=== PATIENT | female | born 1960 | race Caucasian/White ===

== ENCOUNTER 2024-04-19 12:15 | Outpatient (CLI) | payer BC, SELFPAY ==
--- NOTE | ~2024-04-19 | XR_ITS ---
EXAMINATION: XR finger 1st LT min 2V DATE: 04/19/2024 12:31 INDICATION: Left thumb pain. TECHNIQUE: 4 views of left thumb were obtained. COMPARISON: None. FINDINGS: Alignment is normal. No fracture. There is severe osteoarthritis of triscaphe joint and fir st carpometacarpal joint. There is moderate osteoarthritis of first interphalangeal joint. IMPRESSION: 1. Polyarticular osteoarthritis. Reviewed, dictated and finalized at location A. LRY STORE MANAGER
== END 2024-04-19 12:16 | disposition home or self-care (01) ==
LOC: ANHIMG 12:17
PROVIDERS: PCP Family Medicine; Visit Provider Family Medicine
DX: M19.042 Primary osteoarthritis, left hand (principal)
CPT/HCPCS: 73140

== ENCOUNTER 2024-06-22 08:21 | Outpatient (CLI) | payer BC, SELFPAY ==
--- NOTE | 2024-06-22 08:22 | ECG_ITS ---
Test Date: 2024-06-22 09:10:49 Measurements Intervals [place] Rate: 68 P: 66 [place]: 162 QRS: -39 QRSD: 98 T: 42 QT: 413 QTc: 441 Interpretive Statements SINUS RHYTHM LEFT AXIS DEVIATION PATTERN CONSISTENT WITH PULMONARY DISEASE BASELINE WANDER- V4-V6 BORDERLINE ECG No previous ECG available for comparison Electronically Signed On 06-22-2024 10:00:45 C WPF DEVELOPER by Harshal Ace D.O.
--- OUTSIDE RECORDS SUMMARY | 2024-06-22 08:32 | XMS_ITS | Referral Summary ---
Author Organization [facility] Address [address] [place] [address] Care Team Providers Care Abrasives Sales Representative Name Role Phone Ana Massiel Primary Care Provider [phone] Encounters Date Type Department Care Team Description 05/03/2024 Orders Only [facility] [address] [place] [address] Unknown, Notinfile from Last 3 Months Allergies Active Allergy Reactions Criticality Noted Date Comments Cephalexin Rash High 09/19/2006 Codeine Anxiety,Other (See comments) High 09/19/2006 Gets really hyper Gets really hyper Gets really hyper Hyper Medications aspirin 81 mg enteric coated tablet Take 1 tablet (81 mg total) by mouth 11/19/2023 Active atenoloL (TENORMIN) 25 mg tablet Take 1 tablet (25 mg total) by mouth 01/04/2014 Active cetirizine (ZyrTEC) 10 mg tablet Take 1 tablet (10 mg total) by mouth daily Active Active Problems Problem Noted Date Diagnosed Date Hypertension 12/09/2023 Frequent UTI 04/08/2023 Bacterial vaginosis 04/08/2023 Hyperlipidemia 02/10/2023 Dyslipidemia 02/06/2023 Ascending aortic aneurysm 02/06/2023 Cervical radiculitis 06/24/2022 Degenerative disc disease, cervical 02/22/2022 Fissure, anal 08/17/2013 Adenomatous polyp of colon 01/04/2013 Overview (12/09/2023): Colonoscopy 2013 Back strain 07/17/2012 Essential hypertension, benign 10/14/2011 Overview (12/09/2023): (History of) Immunizations Name Administration Dates Next Due Hep A, Adult 10/08/2010,03/01/2010 Influenza, Quadrivalent, Spl it, Preservative Free, Intramuscular 03/15/2013,04/04/2011,03/01/2010,03/02 Tdap 08/06/2023,01/19/2010 Typhoid Live 03/01/2010 Social History Tobacco Use Types Packs/Day Years Used Date Smoking Tobacco: Never Tobacco Cessation:Counseling Given: Not Answered Personal Safety Answer Date Recorded Getting School Help Needed Not on file 11/06 Comments Unknown Sex and Gender Information Value Date Recorded Sex Assigned at Not on file Legal Sex Female 7:45 PM GENERAL PARTNER Gender Identity Not on file Sexual Orientation Not on file Last Filed Vital Signs Vital Sign Reading Time Taken Comments Blood Pressure - - Pulse - - Temperature - - Respiratory Rate - - Oxygen Saturation - - Inhaled Oxygen Concentration - - Weight 75.8 kg (167 lb 3.2 oz) 12/09/2023 10:22 AM CDT Height 170.7 cm (5' 7.2 ) 12/09/2023 10:22 AM CD T Body Mass Index 26.03 12/09/2023 10:22 AM CDT Plan of Treatment Not on file Procedures Procedure Name Priority Date/Time Associated Diagnosis Comments SURGICAL PATHOLOGY Routine 05/03/2024 12 :00 AM GENERAL PARTNER from Last 3 Months Results * Surgical pathology (05/03/2024 12:00 AM GENERAL PARTNER) Skin, shave biopsy 05/03/2024 05/05/2024 6:47 AM GENERAL PARTNER Narrative 05/06/2024 11:50 AM GENERAL PARTNER [facility] results best viewed via link to PDF [facility] [address] [place] [address] Nelda., ??Suite [facility], [place] [address] ? [email or web address] Note to Patients: ??This report may contain a detailed description of human tissue sent by a health care provider to the laboratory for pathologic evaluation. ??The content of this report is essential for diagnosis and may provide important critical findings. ??This information may be unfamiliar to patients to review without a medical professional present. ?? It is advised that the patient review this report in the presence of a health care provider who can answer questions and explain the details. FINAL REPORT Patient Information: PATIENT NAME: ??RACHELL GARCIA ? SEX: ??F ? : ??1960 (Age: 64) ? Specimen Information: COLLECTED: ??05/03/2024 ? RECEIVED: ??05/05/2024 ? REPORTED: ??05/06/2024 ? Submitting Physician Information: Molly Castorena, [facility] Skin [facility], [address] [place] [address] ??[id number], ? DERMATOPATHOLOGY REPORT RESULTS ?? DIAGNOSIS: SKIN, RIGHT INFERIOR MEDIAL MIDBACK, SHAVE BIOPSY: ? COMPOUND MELANOCYTIC NEVUS dh/lac By this signature, I attest that the above diagnosis is based upon my personal examination of the slides(and/or other material indicated in the diagnosis). Jessica Mccurdy M.D. ?? Report Electronically Reviewed and Signed Out By ??Jessica Mccurdy M.D. 05/06/2024 11:50:01 CLINICAL INFORMATION NEOPLASM OF UNCERTAIN BEHAVIOR VS. DYSPLASTIC NEVUS SPECIMEN DATA MICROSCOPIC DESCRIPTION: Enlarged monomorphous melanocytes are arranged as solitary units and nests at the dermo-epidermal junction and as uniform nests, cords and strands within the dermis. (D22.9) GROSS DESCRIPTION: Received in a formalin-containing bottle are two superficial fragments of variegated, hartman, pale hartman and semi-translucent skin measuring 0.6 by 0.5 by 0.1 cm and 0.5 by 0.4 by 0.1 cm. ??The surgical margins are inked blue. The larger piece is sectioned into 2 pieces and the smaller piece is sectioned into 2 pieces. ??The specimen is submitted entirely in a single cassette. Due to shrinkage, measurements may be different than those at time of procedure. exr/anc ICD-9 A; ZSD.407 ? Clerical Data A; 04790 The characteristics of special, immunohistochemical, and immunofluorescence stains and in-situ hybridization tests performed by the [facility] were deemed acceptable in ongoing head of quality measures and in compliance with regulations drawn from the Clinical Laboratory Improvement Act ko4571 (CLIA '88). Control reactions for all stains performed were deemed adequate and appropriate by a pathologist prior to evaluation of patient tissue. Some diagnoses were rendered with the assistance of laboratory-developed tests utilizing analyte-specific reagents; the performance characteristic of these tests were determined by [facility] and are not cleared or approved by the US Food an Drug administration. Laboratory developed test may only be performed in a facility that is certified by the [facility] as a high-complexity laboratory under CLIA '88. These tests are used for clinical purposes and are not investigational. us Notinfile Unknown LAB PATHOLOGY ORDERABLES Final Result from Last 3 Months Insurance [facility] Care Teams Abrasives Sales Representative Relationship Specialty Start Date End Date Massiel Perez [phone] [address] [phone] PCP - General Family Medicine 11/07/23
--- OUTSIDE RECORDS SUMMARY | 2024-06-22 08:32 | XMS_ITS | Clinical Summary ---
Author Organization [facility] Address [address] [place] [address] Care Team Providers Care Chief Strategy Officer Name Role Phone Ana Massiel Primary Care Provider [phone] Allergies Active Allergy Reactions Criticality Noted Date [...] hypertension, benign 10/14/2011 Overview (12/09/2023): (History of) Encounters Date Type Department Care Team Description 05/03/2024 Orders Only [facility] [address] [place] [address] Unknown, Notinfile from Last 3 Months Immunizations Name Administration Dates Next Due Hep A, Adult 10/08/2010,03/01/2010 Influenza, Quadrivalent, Spl it, Preservative Free, Intramuscular 03/15/2013,04/04/2011,03/01/2010,03/02 Tdap 08/06/2023,01/19/2010 Typhoid Live 03/01/2010 Surgical History Surgery Date Site/Laterality Comments JOINT REPLACEMENT HIP SURGERY Medical History Medical History Date Comments Arthritis Social History Tobacco Use Types Packs/Day Years Used Date Smoking Tobacco: Never Tobacco Cessation:Counseling Given: Not Answered Personal Safety Answer Date Recorded Getting School Help Needed Not on file 11/06 Comments Unknown Sex and Gender Information Value Date Recorded Sex Assigned at Not on file Legal Sex Female 7:45 PM FIELD NATURALIST Gender Identity Not on file Sexual Orientation Not on file Obstetrics History Last Filed Vital Signs Vital Sign Reading [...] 12/09/2023 10:22 AM CDT Plan of Treatment Health Maintenance Due Date Last Done Comments Cervical Cancer Screening 1960 Colon Cancer Screening-Colonoscopy 1960 Depression Screening 1960 Hepatitis C Screening 1960 Hepatitis B Screening 1980 Regular Well Visit/Exam 18-64 1980 Zoster Vaccine (1 of 2) 2012 Breast Cancer Screening-Mammogram 11/08/2023 11/07/2022, 11/07/2022, 11/15/2013, Additional history exists Covid-19 Vaccine ( season) 2024 07/21/2021, 06/23/2021 Influenza Vaccine (#1) 2024 3, 04/04/2011, 03/01/2010, Additional history exists DTaP/Tdap/Td Vaccine (3 - Td or Tdap) 08/05/2033 08/06/2023, 01/19/2010 Pneumococcal vaccine <65 Aged Out No longer eligible based on patient's age to complete this topic Procedures Procedure Name Priority Date/Time Associated Diagnosis Comments SURGICAL PATHOLOGY Routine 05/03/2024 12 :00 AM FIELD NATURALIST from Last 3 Months Results * Surgical pathology (05/03/2024 12:00 AM FIELD NATURALIST) Skin, shave biopsy 05/03/2024 05/05/2024 6:47 AM FIELD NATURALIST Narrative 05/06/2024 11:50 AM FIELD NATURALIST [facility] results best viewed via link to PDF [facility] [address] [place], [place] [address]new., ??Suite [facility], [place] [address] ? [email or web address] Note to Patients: ??This report may [...] ??05/06/2024 ? Submitting Physician Information: Molly Castorena, SCALES INSPECTOR- [facility], [address] [place] [address] ??[id number], ? DERMATOPATHOLOGY REPORT RESULTS ?? DIAGNOSIS: SKIN, [...] ICD-9 A; ZSD.407 ? Clerical Data A; 74595 The characteristics of special, immunohistochemical, and immunofluorescence stains and in-situ hybridization tests performed by the [facility] were deemed acceptable in ongoing assistant manager quality management measures and in compliance with regulations drawn from the Clinical Laboratory Improvement Act nc4831 (CLIA '88). Control reactions for all stains performed were deemed adequate and appropriate by a pathologist prior to evaluation of patient tissue. Some diagnoses were rendered with the assistance of laboratory-developed tests utilizing analyte-specific reagents; the performance characteristic of these tests were determined by [facility] and are not cleared or approved by the US Food an Drug administration. Laboratory developed test may only be performed in a facility that is certified by the [facility] as a high-complexity laboratory under CLIA '88. These tests are used for clinical purposes and are not investigational. us Notinfile Unknown LAB PATHOLOGY ORDERABLES Final Result from Last 3 Months Insurance [facility] [place] Care Teams Chief Strategy Officer Relationship Specialty Start Date End Date Massiel Perez [phone] [address] [phone] PCP - General Family Medicine 11/07/23
--- OUTSIDE RECORDS SUMMARY | 2024-06-22 08:32 | XMS_ITS | Referral Summary ---
Author Organization [facility] Address [address] [place] [address] Care Team Providers Care Optical Systems Engineer Name Role Phone Pcp, None Primary Care Provider Unavailabl e Source Comments [facility],non-owned Affiliates and Associated Physician Practices is amultiple site organization consisting of ambulatory clinics and hospital sitesin [place], [place], [place] and [place]. This disclosure is being madepursuant to the Care Everywhere program and may not contain all information available regarding this patient. Last updated 18.[facility] Allergies Active Allergy Reactions Criticality Noted Date Comments Codeine Other High 09/19/2006 Gets really hyper Gets really hyper Gets really hyper Gets really hyper Gets really hyper Gets really hyper Hyper Medications * Be aware that medications may not be up to date on this document. Alwaysverify current medications with the patient. Medication Sig Dispensed Refills Start Date End Date Status DICLOFENAC SOD & TROLAMINE ANOOP CO 05/19/2022 Active hydrocortisone 2.5 % cream - camphor 0.5% - menthol 1% CREA 05/19/2022 Active diclofenac sodium EC (Voltaren) 50 MG tablet Take 1 (one) tablet by mouth 2 times daily 08/06/2023 Active estradiol (Estradiol) 0.0375 MG/24HR 05/19/2022 Active gabapentin (Neurontin) 300 MG capsule Take 2 (two) capsules by mouth at bedtime Active hydrocortisone, rectal, (Anusol-HC) 2.5 % cream PLACE 1 APPLICATION RECTALLY TWICE A DAY 11/14/2023 Active [place]-3 Fatty Acids (fish oil) 1000 MG capsule Take 1 (one) capsule by mouth once daily 12/18/2023 Active Progesterone 100 MG capsule TAKE 1 CAPSULE BY MOUTH EVERY DAY AT BEDTIME 05/19/2018 Active Multiple Vitamins-Minerals (BIOTECT PLUS PO) Vh balance 05/19/2022 Active estriol-estradiol 0.1-0.4 MG/GM cmpd cream Apply to affected area once daily Active nitrofurantoin macrocrystal (Macrodantin) 50 MG capsuleIndications: History of recurrent UTIs Take 1 (one) capsule by mouth once daily as needed 90 capsule 3 01/26/2024 Active fluconazole (Diflucan) 150 MG tabletIndications:H istory of vaginitis Take 1 (one) tablet by mouth every 7 days 12 tablet 3 01/26/2024 Active Active Problems Problem Noted Date Diagnosed Date Osteoarthritis of right hip 09/12/2023 Primary osteoarthritis of right knee 07/01/2023 Hyperlipidemia 02/10/2023 Ascending aortic aneurysm 02/06/2023 STEFANY (obstructive sleep apnea) 03/13/2022 Degenerative disc disease, cervical 02/22/2022 Resolved Problems Problem Noted Date Diagnosed Date Resolved Date Essential hypertension, benign 10/14/2011 01/26/2024 Overview (01/26/2024): (History of) Social History Tobacco Use Types Packs/Day Years Used Date Smoking Tobacco: Never Smokeless Tobacco: Never Tobacco Cessation:Counseling Given: Not Answered Alcohol Use Standard Drinks/Week Comments Yes 2 (1 standard drink = 0.6 oz pur e alcohol) week PHQ-2 Answer Date Recorded Patient Health Questionnaire-2 Score 0 01/19/2024 Sex and Gender Information Value Date Recorded Sex Assigned at Female 02/24/2024 11:01 AM CDT Gender Identity Female 02/24/2024 11:01 AM CDT Sexual Orientation Straight 02/24/2024 11 :01 AM CDT Last Filed Vital Signs Vital Sign Reading Time Taken Comments Blood Pressure 132/76 01/26/2024 10:51 AM CDT Pulse - - Temperature - - Respiratory Rate - - Oxygen Saturation - - Inhaled Oxygen Concentration - - Weight 75.5 kg (166 lb 6.4 oz) 01/26/2024 10:51 AM CDT Height 172.7 cm (5' 8 ) 01/26/2024 10:51 AM CDT Body Mass Index 25.3 01/26/2024 10:51 AM CDT Plan of Treatment Upcoming Encounters Date Type Department Care Team (Late st Contact Info) Description 07/27/2024 10:30 AM CDT Office Visit [facility] - ADVERTISING ASSISTANT [address], [facility] [address] [place] [address] Coreen Vides MD [address] [facility] [address] [place] [address] Care Teams Optical Systems Engineer Relationship Specialty Start Date End Date Pcp, None [phone] [place] [address] PCP - General 01/26/24
--- OUTSIDE RECORDS SUMMARY | 2024-06-22 08:32 | XMS_ITS | Clinical Summary ---
Author Organization [facility] Address [address] [place] [address] Care Team Providers Care Correspondence School Teacher Name Role Phone Pcp, None Primary Care Provider Unavailabl e Source Comments [facility],non-owned Affiliates and Associated Physician Practices is amultiple site organization consisting of ambulatory clinics and hospital sitesin [place], [place], [place] and [place]. This disclosure is being madepursuant to the Care Everywhere program and may not contain all information available regarding this patient. Last updated 18.[facility] Allergies Active Allergy Reactions Criticality Noted Date [...] APPLICATION RECTALLY TWICE A DAY 11/14/2023 Active [place]-3 Fatty Acids (fish oil) 1000 MG capsule [...] 07/01/2023 Hyperlipidemia 02/10/2023 Ascending aortic aneurysm 02/06/2023 TSEFANY (obstructive sleep apnea) 03/13/2022 Degenerative disc disease, cervical 02/22/2022 Resolved Problems Problem Noted Date Diagnosed Date Resolved Date Essential hypertension, benign 10/14/2011 01/26/2024 Overview (01/26/2024): (History of) Family History Medical History Relation Name Comments Hypertension Mother Relation Name Status Comments Mother Social History Tobacco Use Types Packs/Day Years [...] Description 07/27/2024 10:30 AM CDT Office Visit [facility] - STAFF ANESTHESIOLOGIST [address], [address] [place] [address] Coreen Vides MD [address] [place] [address] Health Maintenance Due Date Last Done Comments COLOGUARD (AGES 45-75) - COLON CA SCREENING 1962 COLON MONITORING 1962 COLONOSCOPY - COLON CA SCREENING 1962 CT COLONOGRAPHY - COLON CA SCREENING 1962 Colorectal Cancer Screening 1962 FIT - COLON CA SCREENING 1962 FLEX SIG - COLON CA SCREENING 1962 LIPID TESTING 1962 PAP SMEAR 1962 HIV SCREENING 1977 HEPATITIS C SCREENING 04/13/1980 DTAP/TDAP/TD VACCINES (1 - Tdap) 1981 PNEUMOCOCCAL VACCINE 50+ (1 of 1 - PCV) 2012 ZOSTER VACCINE (1 of 2) 2012 COVID-19 VACCINE (3 - season) 2024 07/21/2021, 06/23/2021 INFLUENZA VACCINE (#1) 2024 3, 04/04/2011, 03/01/2010, Additional history exists SCREENING FOR DIABETES 01/26/2024 DEPRESSION SCREENING 05/19/2024 01/26/2024 MAMMOGRAM 11/07/2024 11/07/2022, 10/18, 02/21/2020 Respiratory Syncytial Virus (RSV) Vaccine Pt: or over 60 yrs (1 - 1-dose 75+ series) 2037 HEPATITIS B VACCINE Aged Out No longe r eligible based on patient's age to complete this topic HIB VACCINE Aged Out No longer eligi ble based on patient's age to complete this topic HPV VACCINE Aged Out No longer eligi ble based on patient's age to complete this topic MENINGOCOCCAL (Group B) VACCINE Aged Out No longer eligible based on patient's age to complete this topic MENINGOCOCCAL VACCINE Aged Out No lisbeth obdulia eligible based on patient's age to complete this topic PNEUMOCOCCAL VACCINE Aged Out No long er eligible based on patient's age to complete this topic Care Teams Correspondence School Teacher Relationship Specialty Start Date End Date Pcp, None [phone] [place] [address] PCP - General 01/26/24
--- OUTSIDE RECORDS SUMMARY | 2024-06-22 08:32 | XMS_ITS | Patient Health Summary ---
Author Organization [facility] Address [address] [place] [address] Care Team Providers Care Hob Machine Operator Name Role Phone Pcp, None Primary Care Provider Unavailabl e Note from [facility],non-owned Affiliates and Associated Physician Practices is amultiple site organization consisting of ambulatory clinics and hospital sitesin [place], [place], [place] and [place]. This disclosure is being madepursuant to the Care Everywhere program and may not contain all information available regarding this patient. Last updated 18.[facility] Allergies * Codeine(Other) -High Criticality * Cephalexin(Rash) -High Criticality,Inactive Medications * Be aware that medications may not be up to date on this document. Alwaysverify current medications with the patient. * DICLOFENAC SOD & TROLAMINE ANOOP CO(Started 05/19/2022) * hydrocortisone 2.5 % cream - camphor 0.5% - menthol 1% CREA(Started 05/19/2022) * diclofenac sodium EC (Voltaren) 50 MG tablet(Started 08/06/2023) Take 1 (one) tablet by mouth 2 times daily * estradiol (Estradiol) 0.0375 MG/24HR(Started 05/19/2022) * gabapentin (Neurontin) 300 MG capsule Take 2 (two) capsules by mouth at bedtime * hydrocortisone, rectal, (Anusol-HC) 2.5 % cream(Started 11/14/2023) PLACE 1 APPLICATION RECTALLY TWICE A DAY * [place]-3 Fatty Acids (fish oil) 1000 MG capsule(Started 12/18/2023) Take 1 (one) capsule by mouth once daily * Progesterone 100 MG capsule(Started 05/19/2018) TAKE 1 CAPSULE BY MOUTH EVERY DAY AT BEDTIME * Multiple Vitamins-Minerals (BIOTECT PLUS PO)(Started 05/19/2022) Vh balance * estriol-estradiol 0.1-0.4 MG/GM cmpd cream Apply to affected area once daily * nitrofurantoin macrocrystal (Macrodantin) 50 MG capsule(Started 01/26/2024) Take 1 (one) capsule by mouth once daily as needed 3 refills by 01/25/2025 * fluconazole (Diflucan) 150 MG tablet(Started 01/26/2024) Take 1 (one) tablet by mouth every 7 days 3 refills by 01/25/2025 Active Problems Problem Noted Date Diagnosed Date Osteoarthritis of right hip 09/12/2023 Primary osteoarthritis of right knee 07/01/2023 Hyperlipidemia 02/10/2023 Ascending aortic aneurysm 02/06/2023 STEFANY (obstructive sleep apnea) 03/13/2022 Degenerative disc disease, cervical 02/22/2022 Resolved Problems Problem Noted Date Diagnosed Date Resolved Date Essential hypertension, benign 10/14/2011 01/26/2024 Social History Tobacco Use Types Packs/Day Years [...] Mass Index 25.3 01/26/2024 10:51 AM CDT Procedures * WET PREP - POINT OF CARE (AMB) [facility](Performed 01/26/2024) Performed for History of vaginitis * FUNGUS DEEPIKA - POINT OF CARE (AMB) [facility](Performed 01/26/2024) Performed for History of vaginitis * PH FLUID - POCT (AMB) [facility](Performed 01/26/2024) Performed for History of vaginitis Results * PH FLUID - POCT (AMB) [facility] (01/26/2024 12:11 PM CDT) pH Vaginal 4.0 [facility] [address] Fluid ENTIRE VAGINA / Unknown 01/26/2024 12:11 PM CDT Coreen Vides MD LAB - POINT OF CAR E ORDERABLES [facility] [address] [place] [address], [facility] [phone] * WET PREP - POINT OF CARE (AMB) [facility] (01/26/2024 12:11 PM CDT) pH Wet Prep 4.0 [facility] [address] Yeast Wet Prep neg [facility] [address] Trichomonas Wet Prep None [facility] [address] Bacteria Wet Prep neg [facility] [address] Whiff Test neg [facility] [address] BODY FLUID SPECIMEN / Unknown 01/26/2024 12:11 PM CDT Coreen Vides MD LAB - POINT OF CAR E ORDERABLES [facility] [address] [place] [address], [facility] [phone] * FUNGUS DEEPIKA - POINT OF CARE (AMB) [facility] (01/26/2024 12:11 PM CDT) DEEPIKA Prep No [facility] [address] Fluid BODY FLUID SPECIMEN / Unknown 01/26/2024 12:11 PM CDT Coreen Vides MD LAB - POINT OF CAR E ORDERABLES [facility] [address] [place] [address], [facility] [phone] Care Teams Hob Machine Operator Relationship Specialty Start Date End Date Pcp, None [address] [place] [address] PCP - General 01/26/24
== END 2024-06-22 08:22 | disposition home or self-care (01) ==
LOC: ANHCARD 08:22
PROVIDERS: PCP Family Medicine; Visit Provider Orthopaedic Surgery
DX: I47.10 Supraventricular tachycardia, unspecified (principal); I10 Essential (primary) hypertension
CPT/HCPCS: 93005

== ENCOUNTER 2024-07-14 09:44 | Emergency (ER) | payer BC, SELFPAY ==
[2024-07-14 09:52] VITALS: BP 130/95; PULSE 81; RESP 16; TEMP 36; O2SAT 100
--- NOTE | 2024-07-14 10:01 | ED_ITS ---
HPI - URI/Sore Throat General Chief Complaint: Upper Respiratory Infection Stated Complaint: sinus inefection Time Seen by Provider: 07/14/24 10:01 Source: patient Mode of arrival: ambulatory Limitations: no limitations History of Present Illness HPI Narrative: 64-year-old female presents with complaint of sinus congestion, sinus pressure, postnasal drainage for 2-3 weeks. Over the past 2-3 days sinus pressure worse. Taking Zyrtec and Elyssa daily. States she has been told to take to antihistamines in the past when sinusitis bothering her. History of sinus surgery. Afebrile. Patient concerned she has bacterial sinus infection. All systems reviewed and negative except as noted above. Related Data Home Medications ?Medication ?Instructions ?Recorded ?Confirmed ?Last Taken ?Type fluconazole 150 mg tablet 150 mg PO DAILY 02/06/24 05/05/24 Unknown History gabapentin 600 mg tablet 600 mg PO QHS 02/06/24 05/05/24 Unknown History hydrocortisone 2.5 % topical cream 1 applic topical BID PRN 02/06/24 05/05/24 Unknown History nitrofurantoin macrocrystal 50 mg 50 mg PO DAILY 02/06/24 05/05/24 Unknown History capsule progesterone micronized 100 mg 100 mg PO QPM 02/06/24 05/05/24 Unknown History capsule estradiol 0.01% (0.1 mg/gram) vaginal 04/08/24 05/05/24 Unknown History vaginal cream Allergies Allergy/AdvReac Type Severity Reaction Status Date / Time No Known Allergies Allergy Verified 07/14/24 09:45 Review of Systems Review of Systems: CONSTITUTIONAL: Denies fever, chills, or sweats. Reports fatigue. EYES: Denies visual changes, redness, or discharge. ENT: Reports rhinorrhea, congestion, postnasal drainage, sinus pressure. Denies sore throat, or otalgia. CARDIOVASCULAR: Denies chest pain, palpitations, or edema. RESPIRATORY: reports cough . Denies dyspnea. GASTROINTESTINAL: Denies abdominal pain, nausea, vomiting, or diarrhea. GENITOURINARY: Denies dysuria or hematuria. SKIN: Denies rash or itching. MUSCULOSKELETAL: Denies back pain, joint pain, or myalgia. NEUROLOGIC: Denies headache, numbness, or weakness. PSYCHIATRIC: Denies anxiety or depression. All other systems reviewed are negative, except as documented in HPI. [facility] Past Medical History Medical History Ovarian cyst Cyst, sinus nasal Thoracic aortic aneurysm Family history of gynecological problem with orthopedic problem Sleep apnea Arthritis Allergies Surgical History Surgical History H/O sinus surgery History of spinal fusion [place] teeth removed Family History Family History Mother Hypertension Cerebrovascular accident Social History Social History Smoking status: Never smoker Comments At time of signature, agree with nursing past medical, surgical, social and family history. There is no relevant family history pertinent to the presenting complaint. Exam Narrative: GENERAL: This is a well-nourished, well-developed patient, in no apparent distress. HEAD: normocephalic, atraumatic. EYES: PERRL. Sclera clear/white. Vision is grossly intact. EARS: External ears normal, auditory canals clear and without drainage, TMs normal without perforation. Hearing grossly intact. NOSE: External nose normal with purulent nasal drainage, maxillary and ethmoid sinus tenderness on palpation THROAT: Mucous membranes moist, erythematous with postnasal drainage NECK: Neck supple, non-tender without lymphadenopathy, masses or thyromegaly. CARDIOVASCULAR: Regular rate and rhythm without murmurs, gallops, or rubs. RESPIRATORY: Clear to auscultation. Breath sounds equal bilaterally. No wheezes, rales, or rhonchi. SKIN: warm, Dry, intact with no suspicious lesions or rash, good texture and turgor. NEURO: awake, alert, and oriented to person, place and time. There were no obvious focal neurologic abnormalities. EXTREMITIES: No joint tenderness, effusion, or edema noted. Course Course Level of Care: Express Care Visit Vital Signs Vital signs: Vital Signs Temperature 36.0 C L 07/14/24 09:52 Pulse Rate 81 07/14/24 09:52 Respiratory Rate 16 07/14/24 09:52 Blood Pressure 130/95 H 07/14/24 09:52 Pulse Oximetry 100 07/14/24 09:52 Oxygen Delivery Room Air 07/14/24 09:52 Temperature 36.0 C L 07/14/24 09:52 Pulse Rate 81 07/14/24 09:52 Respiratory Rate 16 07/14/24 09:52 Blood Pressure 130/95 H 07/14/24 09:52 Pulse Oximetry 100 07/14/24 09:52 Oxygen Delivery Room Air 07/14/24 09:52 reviewed MDM - URI/Sore Throat MDM Narrative Medical decision making narrative: will treat patient for bacterial sinusitis due to duration of symptoms and exam findings. Patient is well-appearing, nontoxic. Please be advised this is a medical document. It is intended for lpgu-pu-bday communication. It is written in medical language and may contain unfamiliar abbreviations or verbiage. Medical documents are intended to carry relevant information, facts as evident, and the clinical opinion of the practitioner at the time of the encounter. This report may have been done utilizing a voice recognition system. Attempts have been made to correct errors. However, there may be uncorrected grammatical, spelling, and recognition errors present. The file time of this note does not necessarily represent the time of service. Differential Diagnosis Differential diagnosis: Likely upper respiratory infection, sinusitis and viral infection Discharge Plan Discharge Clinical Impression: Acute bacterial sinusitis Patient Disposition: Home, Self-Care Condition: Stable Instructions: Antibiotic Form, Sinusitis (ED) Additional Instructions: take antibiotic as prescribed until gone. Continue taking an zcrg-zpw-qmxjosx antihistamine such as Claritin, Zyrtec or Elyssa. Take as directed on packaging. Purchase an tqmg-ekg-ixgpode decongestant such as pseudoephedrine and take as directed on packaging. Drink at least 64 oz of water a day. Place a cool-mist humidifier in bedroom where you sleep. Follow-up with your doctor if symptoms are not improving. Patient Language: Khmer Prescriptions: New amoxicillin-pot clavulanate 875-125 mg tablet 1 tablet PO Q12H 7 Days Qty: 14 0RF No Action estradiol 0.01 % (0.1 mg/gram) cream vaginal progesterone micronized 100 mg capsule 100 mg PO QPM nitrofurantoin macrocrystal 50 mg capsule 50 mg PO DAILY Rx Instructions: must administer with a meal/food fluconazole 150 mg tablet 150 mg PO DAILY hydrocortisone 2.5 % cream 1 applic topical BID PRN gabapentin 600 mg tablet 600 mg PO QHS diclofenac sodium 50 mg tablet,delayed release (DR/EC) 50 mg PO BID Qty: 180 1RF lorazepam 1 mg tablet 1 mg PO QHS PRN (Reason: sleep) Qty: 30 0RF Follow-up/Referrals: Joey Weston MD [Primary Care Provider] - Time of Disposition: 10:11
--- OUTSIDE RECORDS SUMMARY | 2024-07-14 10:44 | XMS_ITS ---
Author Organization 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 Recommended that she apply ICE or topical analgeiscs to the site. Advised her to contact the clinic if the symptoms become worse or do not improve. Plan to insert pellets proximal to the hip in future procedures. Plan Of Treatment Treatment Notes Assessment Notes Other Discussed with the p atient that the pain should improve over the next 1-2 weeks. Recommended that she apply ICE or topical analgeiscs to the site. Advised her to contact the clinic if the symptoms become worse or do not improve. Plan to insert pellets proximal to the hip in future procedures. Progress Notes * Barb GARCIAOB:1960 (64 yo F)Acc No.[id number]:03/31/2024 GenericFQ Patient: Rachell FLEMING Provider: Celena Antoine MD :1960 A ge:63 Y S ex:Female Date:03/31/2024 Address:[address] [place], [place] [id number] Subjective: * Chief Complaints: * 1 . Pellet Pain/Discomfort. * HPI: * [facility]: She presents to clinic today with complaints of pain and tenderness at the left gluteal pellet insertion site. She reports persistent pain i n the left buttocks for the last two weeks that is worse when she sits. She is currently in PT twice a week for a left hip surgery in November. 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 30 MG Tablet 1/2 tablet on an empty stomach x 1 week, then 1 tablet daily there after as tolerated, on a empty stomach Orally Once a day Objective: * Vitals: Assessment: Plan: * Treatment: * Billing Information: * Visit Code: * Procedure Codes: * Electronic signature of Nayana Antoine MD, FAAAAI on 07/14/2024 at 10:44 AM ER NURSE Sign off status: Pending * Provider: Celena Antoine MD Date: 1 05/31/2023 Generated for Kate huerta/Italo/Vickysmitting on: 0 07/14/2024 10:44 AM ER NURSE History and Physical Notes * HPI (History of Present Illness) Category Sub-Category Detail Notes Category Not es *Wellness & Aesthetics She p resents to clinic today with complaints of pain and tenderness at the left gluteal pellet insertion site. She reports persistent pain in the left buttocks for the last two weeks that is worse when she sits. She is currently in PT twice a week for a left hip surgery in November.
--- OUTSIDE RECORDS SUMMARY | 2024-07-14 10:44 | XMS_ITS | Patient Health Record ---
Author Organization [facility] Address [address] [place] [phone] Care Team Providers Care Foundry Worker Apprentice Name Role Phone Jorge Antoine Unavailable [phone] Results Component Value Reference Range Notes HRT Female Pre Pellet Reviewed date:06/28/2024 12:19:10 PM Interpretation:Abnormal Performing Lab:[facility], [address] [place] [id number], Phone - [phone], Director - Elva Notes/Report: Glucose 88 70-99 mg/dL BUN 14 8-27 mg/dL Creatinine 0.89 0.57-1.00 mg/dL eGFR 74 >59 mL/min/1.73 BUN/Creatinine Ratio 16 12-28 Sodium 140 134-144 mmol/L Potassium 4.1 3.5-5.2 mmol/L Chloride 102 96-106 mmol/L Carbon Dioxide, Total 24 20-29 mmol/L Calcium 8.8 8.7-10.3 mg/dL Protein, Total 6.6 6.0-8.5 g/dL Albumin 4.1 3.9-4.9 g/dL Globulin, Total 2.5 1.5-4.5 g/dL Bilirubin, Total 0.4 0.0-1.2 mg/dL Alkaline Phosphatase 66 44-121 IU/L AST (SGOT) 20 0-40 IU/L ALT (SGPT) 16 0-32 IU/L Vitamin B12 803 363-9276 pg/mL Vitamin D, 25-Hydroxy 60.9 30.0-100.0 ng/mL Vitamin D deficiency has been defined by the [place] of [employer] and an Endocrine Society practice guideline as a level of serum 25-OH vitamin D less than 20 ng/mL (1,2). The Endocrine Society went on to further define vitamin D insufficiency as a level between 21 and 29 ng/mL (2). 1. IOM ([place] of [employer]). 2010. Dietary reference intakes for calcium and D. [place]: The National Academies Press. 2. June MF, Blaze HANNAH, Zaida SEGOVIA, et al. Evaluation, treatment, and prevention of vitamin D deficiency: an Endocrine Society clinical practice guideline. JCEM. 2010; 96(7):1911-30. TSH 2.080 0.450-4.500 uIU/mL Triiodothyronine (T3), Free 2.9 2.0-4.4 pg/mL T4,Free(Direct) 1.08 0.82-1.77 ng/dL Thyroid Peroxidase (TPO) Ab 15 0-34 IU/mL Testosterone 27 3-67 ng/dL FSH 68.3 25.8-134.8 mIU/mL Adult Female Range Follicular phase 3.5 - 12.5 Ovulation phase 4.7 - 21.5 Luteal phase 1.7 - 7.7 Postmenopausal 25.8 - 134.8 Estradiol 98.1 0.0-54.7 pg/mL Adult Female Range Follicular phase 12.5 - 166.0 Ovulation phase 85.8 - 498.0 Luteal phase 43.8 - 211.0 Postmenopausal <6.0 - 54.7 1st trimester 215.0 - >4300.0 Genia ECLIA methodology WBC 4.7 3.4-10.8 x10E3/uL RBC 4.04 3.77-5.28 x10E6/uL Hemoglobin 12.7 11.1-15.9 g/dL Hematocrit 40.4 34.0-46.6 % MCV 100 79-97 fL MCH 31.4 26.6-33.0 pg MCHC 31.4 31.5-35.7 g/dL RDW 13.0 11.7-15.4 % Platelets 268 150-450 x10E3/uL Neutrophils 51 Not Estab. % Lymphs 33 Not Estab. % Monocytes 11 Not Estab. % Eos 4 Not Estab. % Basos 1 Not Estab. % Neutrophils (Absolute) 2.4 1.4-7.0 x10E3/uL Lymphs (Absolute) 1.5 0.7-3.1 x10E3/uL Monocytes(Absolute) 0.5 0.1-0.9 x10E3/uL Eos (Absolute) 0.2 0.0-0.4 x10E3/uL Baso (Absolute) 0.1 0.0-0.2 x10E3/uL Immature Granulocytes 0 Not Estab. % Immature Grans (Abs) 0.0 0.0-0.1 x10E3/uL -Uric Acid, Serum Reviewed date:02/27/2024 06:53:09 PM Interpretation:Normal Performing Lab:[address] [id number], Phone - [phone], Director - [facility] Notes/Report: Uric Acid 3.8 3.0-7.2 mg/dL Therapeutic ta rget for gout patients: <6.0 -Hemoglobin A1c Reviewed date:02/27/2024 06:55:32 PM Interpretation:Normal Performing Lab:[address] [id number], Phone - [phone], Director - [facility] Notes/Report: Hemoglobin A1c 5.6 4.8-5.6 % . Prediabetes: 5.7 - 6.4 Diabetes: >6.4 Glycemic control for adults with diabetes: <7.0 -Insulin, Fasting Reviewed date:02/27/2024 06:55:07 PM Interpretation:Normal Performing Lab:[address] [id number], Phone - [phone], Director - [facility] Notes/Report: Insulin 3.6 2.6-24.9 uIU/mL -Ferritin, Serum Reviewed date:02/27/2024 06:52:03 PM Interpretation:Normal Performing Lab:[address] [id number], Phone - [phone], Director - [facility] Notes/Report: Ferritin 47 15-150 ng/mL -C-Reactive Protein, Quant Reviewed date:02/27/2024 06:52:13 PM Interpretation:Normal Performing Lab:[address] [id number], Phone - [phone], Director - [facility] Notes/Report: C-Reactive Protein, Quant <1 0-10 mg/L -Lipid Panel With LDL/HDL Ra sara Reviewed date:06/28/2024 12:19:10 PM Interpretation:Abnormal Performing Lab:[facility], [address] [place], [place] [id number], Phone - [phone], Director - Elva Notes/Report: Cholesterol, Total 324 100-199 mg/dL Triglycerides 152 0-149 mg/dL HDL Cholesterol 61 >39 mg/dL VLDL Cholesterol Rishi 28 5-40 mg/dL LDL Chol Calc ([facility]) 235 0-99 mg/dL LDL Calc Comment: Consider evaluating for Familial Hypercholesterolemia(FH), if clinically indicated. LDL/HDL Ratio 3.9 0.0-3.2 ratio LDL/HDL Ratio Men Women 1/2 Avg.Risk 1.0 1.5 Avg.Risk 3.6 3.2 2X Avg.Risk 6.2 5.0 3X Avg.Risk 8.0 6.1 -IGF-1 Reviewed date:03/01/2024 05:22:09 PM Interpretation:Normal Performing Lab:[facility] [address] [id number], Phone - [phone], Director - Radha Notes/Report: Insulin-Like Growth Factor I 86 57-202 ng/mL Apo A1 + B + Ratio Reviewed date:02/29/2024 07:27:56 PM Interpretation:Abnormal Performing Lab:[facility] [address] [id number], Phone - [phone], Director - Radha Notes/Report: Apolipoprotein A-1 182 116-209 mg/dL Apolipoprotein B 159 <90 mg/dL Desirable < 90 Borderline High 90 - 99 High 100 - 130 Very High >130 ASCVD RISK THERAPEUTIC TARGET CATEGORY APO B (mg/dL) . Very High Risk <80 (if extreme risk <70) High Risk <90 Moderate Risk <90 Apolipo. B/A-1 Ratio 0.9 0.0-0.6 ratio Apolipoprotein B/A-1 Ratio Male Female Avg.Risk 0.7 0.6 2X Avg.Risk 0.9 0.9 3X Avg.Risk 1.0 1.0 Reason For Referral No Information Medications Medication SIG (Take, Route, Fr equency, Duration) Notes Start Date End Date Status OVEN DUMPER Thyroid 30 MG 1/2 tablet on an emp ty stomach x 1 week, then 1 tablet daily there after as tolerated, on a empty stomach Orally Once a day 03/02/2024 Active Problems Problem Type SNOMED Code ICD Code Onset Dates Problem Status W/U Status Risk Notes Problem Hypothyroidism (11299013) Hypothyroidism, unspecified (E03.9) Active confirmed Problem Hyperlipidemia (87113694) Hyperlipidemia, unspecified (E78.5) Active confirmed Problem Insomnia (206078293) Insomnia, unspecified (G47.00) Active confirmed Problem Amnesia (33472801) Other amnesia (R41.3) Active confirmed Problem Chronic fatigue syndrome (disorder) (50495759) Chronic fatigue, unspecified (R53.82) Active confirmed Problem Fatigue (03923801) Other fatigue (R53.83) Active confirmed Problem Abnormal weight gain (220839308) Abnormal weight gain (R63.5) Active confirmed Problem Reduced libido (1370044) Decreased libido (R68.82) Active confirmed Problem Malaise (414832313) Other malaise (R53.81) Active confirmed Problem Hormone replacement therapy (564112198) Hormone replacement therapy (Z79.890) Active confirmed Encounters Encounter Location Date Provider Diagnosis [facility] [place] ([address]) [address] KEHINDE BRAGA [address] [place] [phone] 02/16/2024 Jorge Antoine Hormone replacement therapy Z79.890 [facility] [place] ([address]) [address]A [address] [place] [phone] 03/02/2024 Jorge Antoine Hormone replacement therapy Z79.890 ; Hypothyroidism, unspecified E03.9 and Hyperlipidemia, unspecified E78.5 [facility] ([facility]) 2022 KEHINDE BRAGA [address] [place] [phone] 03/31/2024 Jorge Antoine [facility] ([address]) [address] KE[address] BRAGA [address] [place] [phone] 03/16/2024 Jorge Antoine Hormone replacement therapy Z79.890 and Hypothyroidism, unspecified E03.9 [facility] [place] ([address]) [address]22 KE[address]INDE BRAGA [address] [place] [address] 02/16/2024 Jorge Antoine Chronic fatigue, unspecified R53.82 ; Other fatigue R53.83 ; Other malaise R53.81 ; Insomnia, unspecified G47.00 ; Abnormal weight gain R63.5 ; Decreased libido R68.82 and Other amnesia R41.3 [facility] [address] [employer] [employer] [address] [place] [address] 03/30/2024 Jorge Antoine Assessments Encounter Date Diagnosis (ICD Code) Assessment Notes Treatment Notes Treatment Clinical Notes Section Notes 02/16/2024 Chronic fatigue, unspecified (ICD-10 - R53.82) 02/16/2024 Other fatigue (ICD-10 - R53.83) 02/16/2024 Hormone replacement therapy (ICD-10 - Z79.890) 03/02/2024 Hypothyroidism, unspecified (ICD-10 - E03.9) Suboptimal T3. Start OVEN DUMPER Thyroid 15 mg x 1 week, then 30 mg thereafter. Recheck T3 in 6-12 weeks with post-pellet labs. 03/02/2024 Hormone replacement therapy (ICD-10 - Z79.890) Reviewed labs. Taking estradiol cream. Consider Testosterone 125 mg pellet insertion. Will need to double dose DIM. Start Iodine Start Visbiome Start RYR-Synergy for dyslipidemia Start B complex Plus Start Fatty15 Increase [place] 3 to 4 grams per day Will continue Estradiol Cream over pellet 03/16/2024 Hypothyroidism, unspecified (ICD-10 - E03.9) On OVEN DUMPER Thyroid 30 mg daily with Iodine plust without issues. Check T3 in 6 weeks 03/16/2024 Hormone replacement therapy (ICD-10 - Z79.890) Pellet insertion #1 today, 03/16/2024 (due to prior insertion, inserted on left side, not right as typical) Post-pellet labs: 04/27/2024 Pellet insertion #2: 06/08/2023, patient wants to wait 4 additional weeks - patient wants to push off repeat until 07/13/2023. Placed Testosterone 125 mg (prior dosing), already using estradiol cream, decreased to 2x per week down from 3x per week. Increase DIM to 1 PO BID. Check labs in 6 weeks to include thyroid function. Transmitted. 02/16/2024 Other malaise (ICD-10 - R53.81) 03/02/2024 Hyperlipidemia, unspecified (ICD-10 - E78.5) Given ApoB and ratio and Fasting lipids, strongl recommend RYR-Synergy to lower LDL and start fatty acids and Fatty15 to lower TGs. 02/16/2024 Insomnia, unspecified (ICD-10 - G47.00) 02/16/2024 Abnormal weight gain (ICD-10 - R63.5) 02/16/2024 Decreased libido (ICD-10 - R68.82) 02/16/2024 Other amnesia (ICD-10 - R41.3) 03/31/2024 Other Discussed with the patient that the pain should improve over the next 1-2 weeks. Recommended that she apply ICE or topical analgeiscs to the site. Advised her to contact the clinic if the symptoms become worse or do not improve. Plan to insert pellets proximal to the hip in future procedures. Plan Of Treatment Pending Test Test Name Order Date HRT Female Post Pellet w/o TPO 4
--- OUTSIDE RECORDS SUMMARY | 2024-07-14 10:44 | XMS_ITS | Referral Summary ---
Author Organization [facility] Address [address] [place] [address] Care Team Providers Care Biomedical Repair Technician Name Role Phone Pcp, None Primary Care Provider Unavailabl e Source Comments [facility],non-owned Affiliates and Associated Physician Practices is amultiple site organization consisting of ambulatory clinics and hospital sitesin [place], [place], [place] and [place]. This disclosure is being madepursuant to the Care Everywhere program and may not contain all information available regarding this patient. Last updated 18.[facility] Allergies Active Allergy Reactions Criticality Noted Date [...] APPLICATION RECTALLY TWICE A DAY 11/14/2023 Active [place]-3 Fatty Acids (fish oil) 1000 MG capsule [...] CDT Office Visit [facility] - NEUROPHYSIOLOGIST [address], [facility] [address] [place] [address] Coreen Vides MD [address] [facility] [address] [place] [address] Care Teams Biomedical Repair Technician Relationship Specialty Start Date End Date Pcp, None [address] [place] [address] PCP - General 01/26/24
--- OUTSIDE RECORDS SUMMARY | 2024-07-14 10:44 | XMS_ITS | Clinical Summary ---
Author Organization [facility] Address [address] [place] [address] Care Team Providers Care Net Making Supervisor Name Role Phone Ana Massiel Primary Care Provider [phone] Allergies Active Allergy Reactions Criticality Noted Date [...] Orders Only [facility] [address] [place] [address] Unknown, Notinfile from Last 3 Months Immunizations Immunization Administration Dates Next Due Hep A, Adult [...] on file Legal Sex Female 7:45 PM CHIEF REVENUE OFFICER Gender Identity Not on file Sexual Orientation [...] SURGICAL PATHOLOGY Routine 05/03/2024 12 :00 AM CHIEF REVENUE OFFICER from Last 3 Months Results * Surgical pathology (05/03/2024 12:00 AM CHIEF REVENUE OFFICER) Skin, shave biopsy 05/03/2024 05/05/2024 6:47 AM CHIEF REVENUE OFFICER Narrative 05/06/2024 11:50 AM CHIEF REVENUE OFFICER EPIC results best viewed via link to PDF [facility] [address] [place] [address], [address], [place] [address] [email or web address] Note to Patients: This report may contain a detailed description of human tissue sent by a health care provider to the laboratory for pathologic evaluation. The content of this report is essential for diagnosis and may provide important critical findings. This information may be unfamiliar to patients to review without a medical professional present. It is advised that the patient review this report in the presence of a health care provider who can answer questions and explain the details. FINAL REPORT Patient Information: PATIENT NAME: RACHELL GARCIA SEX: F : 1960 (Age: 64) Specimen Information: COLLECTED: 05/03/2024 RECEIVED: 05/05/2024 REPORTED: 05/06/2024 Submitting Physician Information: Molly Castorena, [facility], [address] [place] [address], DERMATOPATHOLOGY REPORT RESULTS DIAGNOSIS: SKIN, RIGHT INFERIOR MEDIAL MIDBACK, SHAVE BIOPSY: COMPOUND MELANOCYTIC NEVUS dh/lac By this signature, I attest that the above diagnosis is based upon my personal examination of the slides(and/or other material indicated in the diagnosis). Jessica Mccurdy M.D. Report Electronically Reviewed and Signed Out By Jessica Mccurdy M.D. 05/06/2024 11:50:01 CLINICAL INFORMATION NEOPLASM [...] and 0.5 by 0.4 by 0.1 cm. The surgical margins are inked blue. The larger piece is sectioned into 2 pieces and the smaller piece is sectioned into 2 pieces. The specimen is submitted entirely in a single cassette. Due to shrinkage, measurements may be different than those at time of procedure. exr/anc ICD-9 A; ZSD.407 Clerical Data A; 89618 The characteristics of special, immunohistochemical, and immunofluorescence stains and in-situ hybridization tests performed by the [facility] were deemed acceptable in ongoing quality auditor measures and in compliance with regulations drawn from the Clinical Laboratory Improvement Act bd5705 (CLIA '88). Control reactions for all stains performed were deemed adequate and appropriate by a pathologist prior to evaluation of patient tissue. Some diagnoses were rendered with the assistance of laboratory-developed tests utilizing analyte-specific reagents; the performance characteristic of these tests were determined by [facility] and are not cleared or approved by the US Food an Drug administration. Laboratory developed test may only be performed in a facility that is certified by the [facility] as a high-complexity laboratory under CLIA '88. These tests are used for clinical purposes and are not investigational. us Notinfile Unknown LAB PATHOLOGY ORDERABLES Final Result from Last 3 Months Insurance [facility]/PPO Address: [facility] [id number] [place] [address] [facility] Care Teams Net Making Supervisor Relationship Specialty Start Date End Date Massiel Perez [phone] [address] [place] [address] PCP - General Family Medicine 11/07/23
--- OUTSIDE RECORDS SUMMARY | 2024-07-14 10:44 | XMS_ITS | Referral Summary ---
Author Organization [facility] Address [address] [place] [address] Care Team Providers Care Launch Leader Name Role Phone Ana Massiel Primary Care Provider Encounters Date Type Department Care Team Description 05/03/2024 Orders Only [facility] [address] [place] [address] Unknown, Notinfile from Last 3 Months Allergies [...] benign 10/14/2011 Overview (12/09/2023): (History of) Immunizations Immunization Administration Dates Next Due Hep [...] on file Legal Sex Female 7:45 PM SERVICE CENTER SPECIALIST Gender Identity Not on file Sexual Orientation [...] SURGICAL PATHOLOGY Routine 05/03/2024 12 :00 AM SERVICE CENTER SPECIALIST from Last 3 Months Results * Surgical pathology (05/03/2024 12:00 AM SERVICE CENTER SPECIALIST) Skin, shave biopsy 05/03/2024 05/05/2024 6:47 AM SERVICE CENTER SPECIALIST Narrative 05/06/2024 11:50 AM SERVICE CENTER SPECIALIST [facility] results best viewed via link to PDF [facility] [address] [place] [address], [address], [place] [address] [email or web address] Note to Patients: This report may contain [...] REPORTED: 05/06/2024 Submitting Physician Information: Molly Castorena, [facility], [address] [place] [address], DERMATOPATHOLOGY REPORT RESULTS DIAGNOSIS: SKIN, RIGHT INFERIOR [...] exr/anc ICD-9 A; ZSD.407 Clerical Data A; 93900 The characteristics of special, immunohistochemical, and immunofluorescence stains and in-situ hybridization tests performed by the [facility] were deemed acceptable in ongoing environmental quality analyst measures and in compliance with regulations drawn from the Clinical Laboratory Improvement Act az2033 (CLIA '88). Control reactions for all stains performed were deemed adequate and appropriate by a pathologist prior to evaluation of patient tissue. Some diagnoses were rendered with the assistance of laboratory-developed tests utilizing analyte-specific reagents; the performance characteristic of these tests were determined by [facility] and are not cleared or approved by the US Food an Drug administration. Laboratory developed test may only be performed in a facility that is certified by the [facility] as a high-complexity laboratory under CLIA '88. These tests are used for clinical purposes and are not investigational. us Notinfile Unknown LAB PATHOLOGY ORDERABLES Final Result from Last 3 Months Insurance [employer] [place] [facility] [employer] [place] Care Teams Launch Leader Relationship Specialty Start Date End Date Massiel Perez [address] [address] [place] [address] PCP - General Family Medicine 11/07/23
--- OUTSIDE RECORDS SUMMARY | 2024-07-14 10:44 | XMS_ITS | Clinical Summary ---
Author Organization [facility] Address [address] [place] [address] Care Team Providers Care Furnace Packer Name Role Phone Pcp, None Primary Care Provider Unavailabl e Source Comments [facility],non-owned Affiliates and Associated Physician Practices is amultiple site organization consisting of ambulatory clinics and hospital sitesin [place], [place], [place] and [place]. This disclosure is being madepursuant to the Care Everywhere program and may not contain all information available regarding this patient. Last updated 18.[facility] Allergies Active Allergy Reactions Criticality Noted Date [...] APPLICATION RECTALLY TWICE A DAY 11/14/2023 Active Manilla-3 Fatty Acids (fish oil) 1000 MG capsule [...] CDT Office Visit [facility] - VP TRANSPORTATION [address], [address] [place] [address] Coreen Vides MD [address] [place] [address] Health Maintenance Due Date Last [...] age to complete this topic Care Teams Furnace Packer Relationship Specialty Start Date End Date Pcp, None [address] [place] [address] PCP - General 01/26/24
--- OUTSIDE RECORDS SUMMARY | 2024-07-14 10:45 | XMS_ITS | Patient Health Summary ---
Author Organization [facility] Address [address] [place] [address] Care Team Providers Care Floor And Wall Applier Liquid Name Role Phone Pcp, None Primary Care Provider Unavailabl e Note from [facility],non-owned Affiliates and Associated Physician Practices is amultiple site organization consisting of ambulatory clinics and hospital sitesin [place], [place], [place] and [place]. This disclosure is being madepursuant to the Care Everywhere program and may not contain all information available regarding this patient. Last updated 18.[facility] Allergies * Codeine(Other) -High Criticality * Cephalexin(Rash) -High Criticality,Inactive Medications * Be aware that medications may not be up to date on this document. Alwaysverify current medications with the patient. * DICLOFENAC SOD & TROLAMINE AONOP CO(Started 05/19/2022) * hydrocortisone 2.5 % cream [...] 1 APPLICATION RECTALLY TWICE A DAY * Early-3 Fatty Acids (fish oil) 1000 MG capsule(Started [...] [address] [place] [address], [facility] [phone] * WET PREP - POINT OF CARE [...] [address] [place] [address], [facility] [phone] * FUNGUS DEEPIKA - POINT OF CARE (AMB) [facility] (01/26/2024 12:11 PM CDT) DEEPIKA Prep No [facility] [address] Fluid BODY FLUID SPECIMEN / Unknown 01/26/2024 12:11 PM CDT Coreen Vides MD LAB - POINT OF CAR E ORDERABLES [facility] [address] [place] [address], [facility] [phone] Care Teams Floor And Wall Applier Liquid Relationship Specialty Start Date End Date Pcp, None [address] [place] [address] PCP - General 01/26/24
--- OUTSIDE RECORDS SUMMARY | 2024-07-14 10:45 | XMS_ITS ---
Author Organization [facility] Address [address] [place] [address] Care Team Providers Care Centerless Grinder Name Role Phone Jorge Antoine Unavailable [phone] REASON FOR VISIT BHRT Pellet Insertion Encounters Encounter Location Date Provider Diagnosis [facility] ([address]) [address] [place] [address] 07/13/2024 Jorge Antoine Plan Of Treatment No Information Progress Notes * Barb GARCIAOB:1960 (64 yo F)Acc No.[id number]:07/13/2024 EP Pellet Insertion Patient: Rachell FLEMING Provider: Celena Antoine MD :1960 A ge:64 Y S ex:Female Date:07/13/2024 [facility] Subjective: * Chief Complaints: * 1 . BHRT Pellet Insertion. * Medical History: Objective: * Vitals: Assessment: Plan: * Treatment: * Billing Information: * Visit Code: * Procedure Codes: * Electronic signature of Nayana Antoine MD, FAAAAI on 07/14/2024 at 10:44 AM SQL DATABASE ADMINISTRATOR Sign off status: Pending * Provider: Celena Antoine MD Date: 07/13/2024 Generated for Kate huerta/Italo/eTransmitting on: 07/14/2024 10:44 AM SQL DATABASE ADMINISTRATOR
--- OUTSIDE RECORDS SUMMARY | 2024-07-14 10:45 | XMS_ITS ---
Author Organization [facility] Address [address] [place] [address] Care Team Providers Care Grounds And Nursery Specialist Name Role Phone Arash Jorge Unavailable [phone] REASON FOR VISIT Message Encounters Encounter Location Date Provider Diagnosis [facility] [address] [place] [address] 03/30/2024 Jorge Antoine Plan Of Treatment No Information Progress Notes * Barb GARCIAOB:1960 (63 yo F)Acc No.[id number]:03/30/2024 Patient: Rachell FLEMING :1960 A ge:63 Y S ex:Female Address:[address] [place], [address] * true * Date: Generated for Kate huerta/Italo/eTransmitting on: 0 07/14/2024 10:44 AM STERILE PROCESSING TECHNOLOGIST
== END 2024-07-14 10:12 | disposition home or self-care (01) ==
PROVIDERS: Emergency Provider Nurse Practitioner Family; PCP Family Medicine
DX: J01.90 Acute sinusitis, unspecified (principal); M19.90 Unspecified osteoarthritis, unspecified site
CPT/HCPCS: 99213; G0463

== ENCOUNTER 2024-07-29 09:48 | Outpatient (CLI) | payer BC, SELFPAY ==
--- OUTSIDE RECORDS SUMMARY | 2024-07-29 11:15 | XMS_ITS | Referral Summary ---
Author Organization [facility] Address [address] [place] [address] Care Team Providers Care Fur Trimming Machine Operator Name Role Phone Pcp, None Primary Care Provider Unavailabl e Source Comments [facility],non-owned Affiliates and Associated Physician Practices is amultiple site organization consisting of ambulatory clinics and hospital sitesin [place], [place]. This disclosure is being madepursuant to the Care Everywhere program and may not contain all information available regarding this patient. Last updated 18.[facility] [employer] Encounters Date Type Department Care Team Description 07/27/2024 Travel 07/27/2024 10:30 AM CDT Office Visit [facility] - PEDIATRIC RADIOLOGIST [address] [facility], [facility] [address] [place] [address] Coreen Vides MD History of candidiasis (Primary Dx); Vulvar intraepithelial neoplasia (TOPHER) from Last 3 Months Allergies Active Allergy [...] APPLICATION RECTALLY TWICE A DAY 11/14/2023 Active Fanshawe-3 Fatty Acids (fish oil) 1000 MG capsule [...] 7 days 12 tablet 3 01/26/2024 Active LORazepam (Ativan) 1 MG tablet Take 1 (one) tablet by mouth 07/07/2024 Active INDUSTRIAL SERVICE TECHNICIAN Thyroid 30 MG tablet 1/2 tablet on an empty stomach x 1 week, then 1 tablet daily there after as tolerated, on a empty stomach Orally Once a day 03/02/2024 Active Active Problems Problem Noted Date Diagnosed [...] Sign Reading Time Taken Comments Blood Pressure 144/86 07/27/2024 10:21 AM CDT Pulse - - Temperature 36.6 C (97.9 F) 07/27/2024 10:21 AM CDT Respiratory Rate - - Oxygen Saturation - - Inhaled Oxygen Concentration - - Weight 75.8 kg (167 lb 3.2 oz) 07/27/2024 10:21 AM CDT Height 172.7 cm (5' 8 ) 07/27/2024 10:21 AM CDT Body Mass Index 25.42 07/27/2024 10:21 AM CDT Plan of Treatment Upcoming Encounters Date Type Department Care Team (Late st Contact Info) Description 03/01/2025 2:00 PM CDT Office Visit [facility] - PEDIATRIC RADIOLOGIST [address], [facility] [address] [place] [address] Coreen Vides MD [address] [facility] [address] [place] [address] Care Teams Fur Trimming Machine Operator Relationship Specialty Start Date End Date Pcp, None [address] [place] [address] PCP - General 01/26/24
--- OUTSIDE RECORDS SUMMARY | 2024-07-29 11:15 | XMS_ITS | Clinical Summary ---
Author Organization [facility] Address [address] [place] [address] Care Team Providers Care Meter Installer And Remover Name Role Phone Pcp, None Primary Care Provider Unavailabl e Source Comments [facility],non-owned Affiliates and Associated Physician Practices is amultiple site organization consisting of ambulatory clinics and hospital sitesin [place], [place], [place] and [place]. This disclosure is being madepursuant to the Care Everywhere program and may not contain all information available regarding this patient. Last updated 18.[facility] Allergies Active Allergy Reactions Criticality Noted Date [...] APPLICATION RECTALLY TWICE A DAY 11/14/2023 Active Chaffee-3 Fatty Acids (fish oil) 1000 MG capsule [...] 1 (one) tablet by mouth 07/07/2024 Active SCRAP HOOKER Thyroid 30 MG tablet 1/2 tablet on [...] benign 10/14/2011 01/26/2024 Overview (01/26/2024): (History of) Encounters Date Type Department Care Team Description 07/27/2024 10:30 AM CDT Office Visit [facility] - POWER WASHER [address] [place] [address] Coreen Vides MD History of candidiasis (Primary Dx); Vulvar intraepithelial neoplasia (TOPHER) 07/27/2024 Travel from Last 3 Months Family History Medical History Relation Name Comments [...] Description 03/01/2025 2:00 PM CDT Office Visit [facility] - POWER WASHER [address], [facility] [address] [place] [address] Coreen Vides MD [address] [facility] [address] [place] [address] Health Maintenance Due Date Last [...] VACCINE (1 of 2) 2012 COVID-19 VACCINE ( season) 2024 07/21/2021, 06/23/2021 INFLUENZA VACCINE (#1) [...] complete this topic MENINGOCOCCAL (Group B) VACCINE SHARED DECISION-MAKING Aged Out No longer eligible based on patient's age to complete this topic MENINGOCOCCAL GROUPS A/C/Y/W VACCINE Aged Out No longer eligible based on patient's age to complete this topic Care Teams Meter Installer And Remover Relationship Specialty Start Date End Date Pcp, None [address] [place] [address] PCP - General 01/26/24
--- OUTSIDE RECORDS SUMMARY | 2024-07-29 11:15 | XMS_ITS | Referral Summary ---
Author Organization [facility] Address [address] [place] [address] Care Team Providers Care Unclaimed Property Officer Name Role Phone Ana Massiel Primary Care Provider [phone] Encounters Date Type Department Care Team Description 05/03/2024 Orders Only [facility] [address] [place] [address] Unknown, Notinfile from Last 3 Months Allergies [...] on file Legal Sex Female 7:45 PM RUBBLE PLACER Gender Identity Not on file Sexual Orientation [...] SURGICAL PATHOLOGY Routine 05/03/2024 12 :00 AM RUBBLE PLACER from Last 3 Months Results * Surgical pathology (05/03/2024 12:00 AM RUBBLE PLACER) Skin, shave biopsy 05/03/2024 05/05/2024 6:47 AM RUBBLE PLACER Narrative 05/06/2024 11:50 AM RUBBLE PLACER [facility] results best viewed via link to PDF [facility] [address] [place] [address], [address], [place] [address] [email or web address] Note to Patients: This report may [...] REPORTED: 05/06/2024 Submitting Physician Information: Molly Castorena, [facility], [address] [place] [address], DERMATOPATHOLOGY REPORT RESULTS DIAGNOSIS: SKIN, RIGHT INFERIOR [...] exr/anc ICD-9 A; ZSD.407 Clerical Data A; 21093 The characteristics of special, immunohistochemical, and immunofluorescence stains and in-situ hybridization tests performed by the [facility] were deemed acceptable in ongoing chemistry quality control analyst measures and in compliance with regulations drawn from the Clinical Laboratory Improvement Act nf3683 (CLIA '88). Control reactions for all stains performed were deemed adequate and appropriate by a pathologist prior to evaluation of patient tissue. Some diagnoses were rendered with the assistance of laboratory-developed tests utilizing analyte-specific reagents; the performance characteristic of these tests were determined by [facility] and are not cleared or approved by the US Food an Drug administration. Laboratory developed test may only be performed in a facility that is certified by the [facility] as a high-complexity laboratory under CLIA '88. These tests are used for clinical purposes and are not investigational. us Notinfile Unknown LAB PATHOLOGY ORDERABLES Final Result from Last 3 Months Insurance [employer] [place] [facility] [employer] [place] Care Teams Unclaimed Property Officer Relationship Specialty Start Date End Date Massiel Perez [address] [address] [address] PCP - General Family Medicine 11/07/23
--- OUTSIDE RECORDS SUMMARY | 2024-07-29 11:15 | XMS_ITS | Patient Health Summary ---
Author Organization [facility] Address [address] [place] [address] Care Team Providers Care Coding Support Specialist Name Role Phone Pcp, None Primary Care Provider Unavailabl e Note from [facility] [place],non-owned Affiliates and Associated Physician Practices is amultiple site organization consisting of ambulatory clinics and hospital sitesin [place], [place], [place] and [place]. This disclosure is being madepursuant to the Care Everywhere program and may not contain all information available regarding this patient. Last updated 18.[facility] Allergies * Codeine(Other) -High Criticality * Cephalexin(Rash) [...] 1 APPLICATION RECTALLY TWICE A DAY * [place]-3 Fatty Acids (fish oil) 1000 MG capsule(Started [...] every 7 days 3 refills by 01/25/2025 * LORazepam (Ativan) 1 MG tablet(Started 07/07/2024) Take 1 (one) tablet by mouth * TURBINATED BONE GRINDER Thyroid 30 MG tablet(Started 03/02/2024) 1/2 tablet on an empty stomach x 1 week, then 1 tablet daily there after as tolerated, on a empty stomach Orally Once a day Active Problems Problem Noted Date Diagnosed Date [...] Mass Index 25.42 07/27/2024 10:21 AM CDT Procedures * WET PREP - [...] [address] [place] [address], [place] [phone] * WET PREP - POINT OF CARE [...] [address] [place] [address], [place] [phone] * FUNGUS DEEPIKA - POINT OF CARE (AMB) [facility] (01/26/2024 12:11 PM CDT) DEEPIKA Prep No [facility] [address] Fluid BODY FLUID SPECIMEN / Unknown 01/26/2024 12:11 PM CDT Coreen Vides MD LAB - POINT OF CAR E ORDERABLES [facility] [address] [place] [address], [place] [phone] Care Teams Coding Support Specialist Relationship Specialty Start Date End Date Pcp, None [address] [place] [address] PCP - General 01/26/24
--- OUTSIDE RECORDS SUMMARY | 2024-07-29 11:15 | XMS_ITS | Clinical Summary ---
Author Organization [facility] Address [address] [place] [address] Care Team Providers Care Respiratory Clinician Name Role Phone Ana Massiel Primary Care Provider [phone] Allergies Active Allergy Reactions Criticality Noted Date [...] Orders Only [facility] [address] [place] [address] Unknown, Notinfile from Last 3 Months Immunizations [...] on file Legal Sex Female 7:45 PM ACTIVITIES MANAGER Gender Identity Not on file Sexual Orientation [...] SURGICAL PATHOLOGY Routine 05/03/2024 12 :00 AM ACTIVITIES MANAGER from Last 3 Months Results * Surgical pathology (05/03/2024 12:00 AM ACTIVITIES MANAGER) Skin, shave biopsy 05/03/2024 05/05/2024 6:47 AM ACTIVITIES MANAGER Narrative 05/06/2024 11:50 AM ACTIVITIES MANAGER EPIC results best viewed via link to PDF [facility] [address] [place] [address], [address], [place] [address] [email or web address] Note to Patients: This report may [...] REPORTED: 05/06/2024 Submitting Physician Information: Molly Castorena, [facility], [address] [place] [address], DERMATOPATHOLOGY REPORT RESULTS DIAGNOSIS: SKIN, RIGHT INFERIOR [...] exr/anc ICD-9 A; ZSD.407 Clerical Data A; 14293 The characteristics of special, immunohistochemical, and immunofluorescence stains and in-situ hybridization tests performed by the [facility] were deemed acceptable in ongoing quality eng measures and in compliance with regulations drawn from the Clinical Laboratory Improvement Act cf8594 (CLIA '88). Control reactions for all stains performed were deemed adequate and appropriate by a pathologist prior to evaluation of patient tissue. Some diagnoses were rendered with the assistance of laboratory-developed tests utilizing analyte-specific reagents; the performance characteristic of these tests were determined by [facility] and are not cleared or approved by the US Food an Drug administration. Laboratory developed test may only be performed in a facility that is certified by the [facility] as a high-complexity laboratory under CLIA '88. These tests are used for clinical purposes and are not investigational. us Notinfile Unknown LAB PATHOLOGY ORDERABLES Final Result from Last 3 Months Insurance [facility] Care Teams Respiratory Clinician Relationship Specialty Start Date End Date Massiel Perez [address] [address] [place] [address] PCP - General Family Medicine 11/07/23
--- OUTSIDE RECORDS SUMMARY | 2024-07-29 11:15 | XMS_ITS | Patient Health Record ---
Author Organization [facility] Address [address] [place] [address] Care Team Providers Care Shirrer Name Role Phone Jorge Antoine Unavailable [phone] Results Component Value Reference Range Notes HRT Female Pre Pellet Reviewed date:06/28/2024 12:19:10 PM Interpretation:Abnormal Performing Lab:[facility], [address] [place] [id number], Phone - [phone], Director - Elva Notes/Report: Glucose 88 70-99 [...] ALT (SGPT) 16 0-32 IU/L Vitamin B12 785 945-2650 pg/mL Vitamin D, 25-Hydroxy 60.9 30.0-100.0 ng/mL Vitamin D deficiency has been defined by the [place] [employer] and an Endocrine Society practice guideline as a level of serum 25-OH vitamin D less than 20 ng/mL (1,2). The Endocrine Society went on to further define vitamin D insufficiency as a level between 21 and 29 ng/mL (2). 1. IOM ([place] of [employer]). 2010. Dietary reference intakes for [...] Serum Reviewed date:02/27/2024 06:53:09 PM Interpretation:Normal Performing Lab:[address] [id number], Phone - [phone], Director - [facility] Notes/Report: Uric Acid 3.8 3.0-7.2 mg/dL Therapeutic ta rget for gout patients: <6.0 -Hemoglobin A1c Reviewed date:02/27/2024 06:55:32 PM Interpretation:Normal Performing Lab:[address] [id number], Phone - [phone], Director - [facility] Notes/Report: Hemoglobin A1c 5.6 4.8-5.6 % . Prediabetes: 5.7 - 6.4 Diabetes: >6.4 Glycemic control for adults with diabetes: <7.0 -Insulin, Fasting Reviewed date:02/27/2024 06:55:07 PM Interpretation:Normal Performing Lab:[address] [id number], Phone - [phone], Director - [facility] Notes/Report: Insulin 3.6 2.6-24.9 uIU/mL -Ferritin, Serum Reviewed date:02/27/2024 06:52:03 PM Interpretation:Normal Performing Lab:[address] [id number], Phone - [phone], Director - [facility] Notes/Report: Ferritin 47 15-150 ng/mL -C-Reactive Protein, Quant Reviewed date:02/27/2024 06:52:13 PM Interpretation:Normal Performing Lab:[address] [id number], Phone - [phone], Director - [facility] Notes/Report: C-Reactive Protein, Quant <1 0-10 mg/L -Lipid Panel With LDL/HDL Ra sara Reviewed date:06/28/2024 12:19:10 PM Interpretation:Abnormal Performing Lab[facility], [address] [place], [place] [id number], Phone - [phone], Director - Elva Notes/Report: Cholesterol, Total 324 100-199 mg/dL Triglycerides 152 0-149 mg/dL HDL Cholesterol 61 >39 mg/dL VLDL Cholesterol Rishi 28 5-40 mg/dL LDL Chol Calc ([facility]) 235 0-99 mg/dL LDL Calc Comment: Consider evaluating for Familial Hypercholesterolemia(FH), if clinically indicated. 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 1/2 tablet on an emp ty stomach x 1 week, then 1 tablet daily there after as tolerated, on a empty stomach Orally Once a day 03/02/2024 Active Problems Problem Type SNOMED Code ICD Code Onset Dates Problem Status W/U Status Risk Notes Problem Hypothyroidism (39293810) Hypothyroidism, unspecified (E03.9) Active confirmed Problem Hyperlipidemia (97298751) Hyperlipidemia, unspecified (E78.5) Active confirmed Problem Insomnia (542763215) Insomnia, unspecified (G47.00) Active confirmed Problem Amnesia (24019006) Other amnesia (R41.3) Active confirmed Problem Chronic fatigue syndrome (disorder) (68482344) Chronic fatigue, unspecified (R53.82) Active confirmed Problem Fatigue (01863052) Other fatigue (R53.83) Active confirmed Problem Abnormal weight gain (111854393) Abnormal weight gain (R63.5) Active confirmed Problem Reduced libido (7582404) Decreased libido (R68.82) Active confirmed Problem Malaise (558938034) Other malaise (R53.81) Active confirmed Problem Hormone replacement therapy (783064086) Hormone replacement therapy (Z79.890) Active confirmed Encounters Encounter Location Date Provider Diagnosis [facility] [place] ([address]) [address] [place] [phone] 02/16/2024 Jorge Antoine Hormone replacement therapy Z79.890 [facility] [place] ([address]) [address] [place] [phone] 03/02/2024 Jorge Antoine Hormone replacement therapy Z79.890 ; Hypothyroidism, unspecified E03.9 and Hyperlipidemia, unspecified E78.5 [facility] [address] [place] [address] 03/31/2024 Jorge Antoine [facility] [place] [facility] ([address]) [address] [place] [phone] 03/16/2024 Jorge Antoine Hormone replacement therapy Z79.890 and Hypothyroidism, unspecified E03.9 [facility] [place] ([address]) [address] [place] [address] 02/16/2024 Jorge Antoine Chronic fatigue, unspecified R53.82 ; Other fatigue R53.83 ; Other malaise R53.81 ; Insomnia, unspecified G47.00 ; Abnormal weight gain R63.5 ; Decreased libido R68.82 and Other amnesia R41.3 [facility] [address] [facility] [address] [place] [address] 03/30/2024 Jorge Antoine Assessments Encounter Date Diagnosis (ICD Code) Assessment Notes Treatment Notes Treatment Clinical Notes Section Notes 02/16/2024 Chronic fatigue, unspecified (ICD-10 - R53.82) 02/16/2024 Other fatigue (ICD-10 - R53.83) 02/16/2024 Hormone replacement therapy (ICD-10 - Z79.890) 03/02/2024 Hypothyroidism, unspecified (ICD-10 - E03.9) Suboptimal T3. 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 Recheck T3 in 6-12 weeks with post-pellet labs. 03/02/2024 Hormone replacement therapy (ICD-10 - Z79.890) Reviewed labs. Taking estradiol cream. Consider Testosterone 125 mg pellet insertion. Will need to double dose DIM. 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
--- OUTSIDE RECORDS SUMMARY | 2024-07-29 11:15 | XMS_ITS ---
Author Organization 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 MG 1/2 tablet on an emp ty stomach x 1 week, then 1 tablet daily there after as tolerated, on a empty stomach Orally Once a day 03/02/2024 Active Encounters Encounter Location Date Provider Diagnosis [facility] [place] ([address]) [address] [address] 03/31/2024 Jorge Antoine Assessments Encounter Date Diagnosis [...] Notes * Barb GARCIAOB:1960 (64 yo F)Acc No.[id number]:03/31/2024 GenericFQ Patient: Rachell FLEMING Provider: Celena Antoine MD :1960 A ge:63 Y S ex:Female Date:03/31/2024 Address:[address] [place], [place] [id number] Subjective: * Chief Complaints: * 1 . 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
--- OUTSIDE RECORDS SUMMARY | 2024-07-29 11:15 | XMS_ITS ---
Author Organization [facility] Address [address] [place] [address] Care Team Providers Care Digital Producer Name Role Phone Arash Jorge Unavailable [phone] REASON FOR VISIT Message Encounters Encounter Location Date Provider Diagnosis [facility] [address] [place] [address] 03/30/2024 Jorge Antoine Plan Of Treatment No Information Progress Notes * Barb GARCIAOB:1960 (63 yo F)Acc No.[id number]:03/30/2024 Patient: Rachell FLEMING :1960 A ge:63 Y S ex:Female Address:[address] [place], [address] * true * Date: Generated for Kate huerta/Italo/eTransmitting on: 0 07/29/2024 11:15 AM CDT
--- OUTSIDE RECORDS SUMMARY | 2024-07-29 11:15 | XMS_ITS ---
Author Organization [facility] Address [address] [place] [address] Care Team Providers Care Ramp Attendant Name Role Phone Jorge Antoine Unavailable [phone] REASON FOR VISIT BHRT Pellet Insertion Encounters Encounter Location Date Provider Diagnosis [facility] ([address]) [address] [place] [phone] 07/13/2024 Jorge Antoine Plan Of Treatment No Information Progress Notes * Barb GARCIAOB:1960 (64 yo F)Acc No.[id number]:07/13/2024 EP Pellet Insertion Patient: Rachell FLEMING Provider: Celena Antoine MD :1960 A ge:64 Y S ex:Female Date:07/13/2024 Address:[facility] Subjective: * Chief Complaints: * 1 . BHRT Pellet Insertion. * Medical History: Objective: * Vitals: Assessment: Plan: * Treatment: * Billing Information: * Visit Code: * Procedure Codes: * Electronic signature of Nayana Antoine MD, FAAAAI on 07/29/2024 at 11:15 AM CDT Sign off status: Pending * Provider: Celena Antoine MD Date: 0 07/13/2024 Generated for Kate huerta/Italo/eTdelorisitting on: 0 07/29/2024 11:15 AM CDT
[2024-07-29 12:17] LABS: Basophils Absolute Auto 0.1 K/mm3 (0.0-0.1); Basophils Percent Auto 1.6 % (0.2-1.2); Eosinophils Absolute Auto 0.2 K/mm3 (0-0.3); Eosinophils Percent Auto 3.2 % (0-4.4); Hematocrit 40.6 % (37.0-47.0); Immature Granulocyte Absolute 0.01 K/mm3 (0.00-0.031); Immature Granulocyte Percent A 0.2 % (0-0.5); Lymphocytes Percent Auto 34.2 % (18.3-44.2); Mean Corpuscular Hemoglobin 31.8 pg (26-34); Mean Corpuscular Volume 99.3 fl (80-100); Mean Platelet Volume 10.3 fl (7.4-10.4); Monocytes Absolute Auto 0.5 K/mm3 (0.1-0.6); Monocytes Percent Auto 10.5 % (2.6-8.5); Neutrophils Absolute Auto 2.5 K/mm3 (1.3-6.7); Neutrophils Percent Auto 50.3 % (45.5-73.1); Platelet Count Result 254 k/mm3 (150-375); Red Blood Count 4.09 M/mm3 (4.2-5.4); Red Cell Distribution Width 13.6 % (11.5-14.5)
[2024-07-29 12:34] LABS: Hemoglobin A1C 5.2 % (<5.7)
[2024-07-29 12:39] LABS: Urine Cotinine NEGATIVE
[2024-07-29 13:20] LABS: MRSA (PCR) NOT DETECTED (NOT DETECTE)
== END 2024-07-29 09:49 | disposition home or self-care (01) ==
LOC: ANHSURGERY 09:52
PROVIDERS: PCP Family Medicine; Visit Provider Orthopaedic Surgery
DX: M16.12 Unilateral primary osteoarthritis, left hip (principal); Z01.818 Encounter for other preprocedural examination
CPT/HCPCS: 80307; 83036; 85025; 87641

== ENCOUNTER 2024-08-19 02:12 | Day surgery (SDC) | payer BC, SELFPAY ==
--- NOTE | 2024-07-29 09:57 | PC.NURSE ---
Report to the Outpatient Waiting Room, entrance under the green pavilion located off [facility], at time __10:30 AM on date 08/19/24 . Planned Procedure Time: ___12:30 PM .? Time changes happen often and if your time is changed the preop area will call you the afternoon before. - You and your visitor will be asked to self-screen and do not enter if you have any COVID symptoms. Please call surgeon if you need to reschedule. - A mask is optional within the hospital at this time. Patients may have clear liquids (water, carbonated beverages, clear teas, apple juice) until 3 hours prior to surgery ( 9:30 AM) with a maximum of 20 ounces. - No food from midnight until time of surgery and no smoking, or chewing tobacco (or any form of nicotine). No chewing gum, candy or mints. - Take only the following medications with a SIP of water on the morning of surgery: _NONE DO NOT STOP ANY OF YOUR OTHER PRESCRIPTION MEDICATIONS PRIOR TO SURGERY EXCEPT THE FOLLOWING Hold all vitamins and supplements for 3 days per anesthesiologist. LAST DOSE 08/15/24 Medications to discontinue per physician DICLOFENAC HOLD 7 DAYS PRE OP PER DR MCKEON LAST DOSE 08/11/24 MAY TAKE TYLENOL IF NEEDED FOR PAIN Please no make-up, nail belizean, hairspray, perfume, deodorant, or body powder the day of surgery.? No jewelry (including any body piercings) or valuables the day of surgery, leave them at home.? Please take a shower or bath the night before, or the morning of, surgery with an antibacterial soap.? Wear comfortable, loose fitting clothing.? Children are encouraged to wear pajamas. - Jewelry must be removed prior to entering the operating room.? Rings and piercings that are not removed may be cut off. - The hospital will not accept responsibility for valuables.? - Please leave all valuables, including medications, at home the day of surgery. If you are going home after surgery, a licensed truck driver supervisor must drive you home.? - NO public transportation without another adult if you receive anesthesia. - We recommend that an adult stay with you for 24 hours following discharge. - We also recommend that you do not drive, make important decision, drink alcoholic beverages, or take any drugs that were not prescribed by your health care provider for at least 24 hours after your discharge time. Follow any additional instructions given to you from your surgeon. VERBAL AND WRITTEN instructions given to __PATIENT and asked if any additional questions and then verbalized understanding. Patient advised to call surgeon office or pre surgery nurse liaison [phone] if any additional questions.
[2024-07-29 10:03] VITALS: BMI 25.5
[2024-07-29 11:27] VITALS: BP 147/91; PULSE 66; RESP 18; TEMP 36.7; O2SAT 100
--- NOTE | 2024-08-18 14:25 | WPDANESEPP ---
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 Patient Data Age: 64 Gender: F Height: 1.73 m Weight: 76.2 kg Last Vital Signs Temp 98.0 F 07/29/24 11:27 Pulse 66 07/29/24 11:27 Resp 18 07/29/24 11:27 BP 147/91 H 07/29/24 11:27 Pulse Ox 100 07/29/24 11:27 O2 Del Method Room Air 07/29/24 11:27 Allergies Allergy/AdvReac Type Severity Reaction Status Date / Time atenolol AdvReac Hypotension Verified 08/06/24 14:03 Home Medications ?Medication ?Instructions ?Recorded ?Confirmed ?Type fluconazole 150 mg tablet 150 mg PO WEEKLY 02/06/24 08/09/24 History gabapentin 600 mg tablet 600 mg PO QHS 02/06/24 08/09/24 History hydrocortisone 2.5 % topical cream 1 applic topical BID PRN 02/06/24 08/09/24 History hemorrhoids nitrofurantoin macrocrystal 50 mg 50 mg PO PRN 02/06/24 08/09/24 History capsule progesterone micronized 100 mg 100 mg PO QPM 02/06/24 08/09/24 History capsule estradiol 0.01% (0.1 mg/gram) 1 g vaginal 3XW 04/08/24 08/09/24 History vaginal cream diclofenac sodium 50 mg 50 mg PO BID #180 tabs 05/09/24 08/09/24 Rx tablet,delayed release amoxicillin 875 mg-potassium 1 tablet PO Q12H 7 days #14 tabs 07/14/24 08/09/24 Rx clavulanate 125 mg tablet biotin 2,500 mcg capsule 2,500 mcg PO DAILY 07/29/24 08/09/24 History cholecalciferol (vitamin D3) 125 125 mcg PO DAILY 07/29/24 08/09/24 History mcg (5,000 unit) capsule garlic 1,000 mg capsule (garlic 1,000 mg PO DAILY 07/29/24 08/09/24 History oil) lutein 20 mg capsule 20 mg PO DAILY 07/29/24 08/09/24 History magnesium 250 mg tablet 250 mg PO DAILY 07/29/24 08/09/24 History magnesium hydroxide 400 mg/5 mL 5 ml PO HS 07/29/24 08/09/24 History oral suspension (Milk of Magnesia) omega-3 fatty acids 2,500 mg PO DAILY 07/29/24 08/09/24 History vitamin B complex (Vitamins B 1 cap PO DAILY 07/29/24 08/09/24 History Complex capsule) zinc 50 mg tablet 50 mg PO DAILY 07/29/24 08/09/24 History lorazepam 1 mg tablet 1 mg PO QHS PRN sleep #30 tabs 08/02/24 08/09/24 Rx Patient hx anesthesia problems: none Family hx anesthesia problems: none Results Review: All pre-operative results and documents have been reviewed as part of the pre-operative evaluation. [facility] Past Medical History Medical History Ascending aortic aneurysm Hypertension Dyslipidemia PSVT (paroxysmal supraventricular tachycardia) Hypothyroidism Left knee DJD Ovarian cyst Cyst, sinus nasal Thoracic aortic aneurysm Family history of gynecological problem with orthopedic problem Sleep apnea Arthritis Allergies Surgical History Surgical History H/O sinus surgery History of spinal fusion [place] teeth removed Family History Family History Mother Hypertension Cerebrovascular accident Social History Social History Smoking status: Never smoker Additional smoking assessment comments: DENIES ANY FORM OF TOBACCO USE Alcohol intake: current Drinks per week: 1 Do You Feel Safe in your Home?: Yes Lack of Transportation: No Lack of Food: Never True Current Housing: I Have Housing Concerned About Future Housing: No Difficulty Paying Gas/Electric Bills: No Difficulty Paying for Meds: No Currently Unemployed: No Education: Master's Degree or Higher Living arrangements: with family Spiritual care concerns: No Comments SINUS RHYTHM LEFT AXIS DEVIATION PATTERN CONSISTENT WITH PULMONARY DISEASE BASELINE WANDER- V4-V6 BORDERLINE ECG VR 68 Exam Day of Procedure 08/18/24 14:25 Patient weight: overweight
[2024-08-19] VITALS (12 sets, daily range): BP systolic 121–160; BP diastolic 71–99; PULSE 75–92; RESP 12–16; TEMP 36.2–37.2; O2SAT 95–100
--- NOTE | ~2024-08-19 | XR_ITS ---
EXAM: XR surgery orthopedic DATE: 08/19/2024 14:50 HISTORY: INTRA OP IMAGES . COMPARISON: None available. FINDINGS: Stable artifact. Temporary arthroplasty hardware, in good position. A surgical clamp or ot her instrument projects over the left image border. Osteopenia. No unexpected radiopaque foreign body . IMPRESSION: Expected intraoperative changes, with no radiographic evidence of procedure or hardware r elated complication. Reviewed, dictated and finalized at location K. IMPRESSION: Expected intraoperative changes, with no radiographic evidence of p rocedure or hardware related complication.
--- NOTE | ~2024-08-19 | XR_ITS ---
EXAMINATION: XR hip LT min 2V DATE: 08/19/2024 16:14 INDICATION: Left total hip arthroplasty TECHNIQUE: 2 views left hip FINDINGS: There is a left total hip arthroplasty in expected position. Subcutaneous gas with soft ti ssue swelling are consistent with recent surgery. IMPRESSION: 1. Recent left total hip arthroplasty. Reviewed, dictated and finalized at location A.
--- OUTSIDE RECORDS SUMMARY | 2024-08-19 02:16 | XMS_ITS | Patient Health Record ---
Author Organization [facility] Address [address] [place] [address] Care Team Providers Care Wildlife Refuge Specialist Name Role Phone Jorge Antoine Unavailable [phone] Results Component Value Reference Range Notes HRT Female Pre Pellet Reviewed date:06/28/2024 12:19:10 PM Interpretation:Abnormal Performing Lab:[facility], [address] [place] [id number], Phone - [phone], Director - Elva Notes/Report: Glucose 88 70-99 [...] ALT (SGPT) 16 0-32 IU/L Vitamin B12 837 324-3280 pg/mL Vitamin D, 25-Hydroxy 60.9 30.0-100.0 ng/mL Vitamin D deficiency has been defined by the [employer] of Medicine and an Endocrine Society practice guideline as a level of serum 25-OH vitamin D less than 20 ng/mL (1,2). The Endocrine Society went on to further define vitamin D insufficiency as a level between 21 and 29 ng/mL (2). 1. IOM ([employer] of Medicine). 2010. Dietary reference intakes for [...] % Immature Grans (Abs) 0.0 0.0-0.1 x10E3/uL -Hemoglobin A1c Reviewed date:02/27/2024 06:55:32 PM Interpretation:Normal Performing Lab:[address] [id number], Phone - [phone], Director - [facility] Notes/Report: Hemoglobin A1c 5.6 4.8-5.6 % . Prediabetes: 5.7 - 6.4 Diabetes: >6.4 Glycemic control for adults with diabetes: <7.0 -Insulin, Fasting Reviewed date:02/27/2024 06:55:07 PM Interpretation:Normal Performing Lab:[address] [id number], Phone - [phone], Director - [facility] Notes/Report: Insulin 3.6 2.6-24.9 uIU/mL -Uric Acid, Serum Reviewed date:02/27/2024 06:53:09 PM Interpretation:Normal Performing Lab:[address] [id number], Phone - [phone], Director - [facility] Notes/Report: Uric Acid 3.8 3.0-7.2 mg/dL Therapeutic ta rget for gout patients: <6.0 -Lipid Panel With LDL/HDL Ra sara Reviewed date:06/28/2024 12:19:10 PM Interpretation:Abnormal Performing Lab:[address] [id number], Phone - [phone], Director - [facility] Notes/Report: Cholesterol, Total 324 100-199 mg/dL Triglycerides 152 0-149 mg/dL HDL Cholesterol 61 >39 mg/dL VLDL Cholesterol Rishi 28 5-40 mg/dL LDL Chol Calc ([facility]) 235 0-99 mg/dL LDL Calc Comment: Consider evaluating for Familial Hypercholesterolemia(FH), if clinically indicated. LDL/HDL Ratio 3.9 0.0-3.2 ratio LDL/HDL Ratio Men Women 1/2 Avg.Risk 1.0 1.5 Avg.Risk 3.6 3.2 2X Avg.Risk 6.2 5.0 3X Avg.Risk 8.0 6.1 -IGF-1 Reviewed date:03/01/2024 05:22:09 PM Interpretation:Normal Performing Lab:[facility], [address] [place] [id number], Phone - [phone], Director - Radha Notes/Report: Insulin-Like Growth Factor I 86 57-202 ng/mL -C-Reactive Protein, Quant Reviewed date:02/27/2024 06:52:13 PM Interpretation:Normal Performing Lab:[address] [id number], Phone - [phone], Director - [facility] Notes/Report: C-Reactive Protein, Quant <1 0-10 mg/L -Ferritin, Serum Reviewed date:02/27/2024 06:52:03 PM Interpretation:Normal Performing Lab:[facility], [address] [place] [id number], Phone - [phone], Director - Elva Notes/Report: Ferritin 47 15-150 ng/mL Apo A1 + B + Ratio Reviewed date:02/29/2024 07:27:56 PM Interpretation:Abnormal Performing Lab:[address] [id number], Phone - [phone], Director - Radha Notes/Report: Apolipoprotein A-1 182 [...] Duration) Notes Start Date End Date 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/2 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 on an emp ty stomach x 1 week, then 1 tablet daily there after as tolerated, on a empty stomach Orally Once a day 03/02/2024 Active Problems Problem Type SNOMED Code ICD Code Onset Dates Problem Status W/U Status Risk Notes Problem Hypothyroidism (32844454) Hypothyroidism, unspecified (E03.9) Active confirmed Problem Hyperlipidemia (93381261) Hyperlipidemia, unspecified (E78.5) Active confirmed Problem Insomnia (243289337) Insomnia, unspecified (G47.00) Active confirmed Problem Amnesia (28527940) Other amnesia (R41.3) Active confirmed Problem Chronic fatigue syndrome (disorder) (56523126) Chronic fatigue, unspecified (R53.82) Active confirmed Problem Fatigue (03829582) Other fatigue (R53.83) Active confirmed Problem Abnormal weight gain (119064107) Abnormal weight gain (R63.5) Active confirmed Problem Reduced libido (1339990) Decreased libido (R68.82) Active confirmed Problem Malaise (838305074) Other malaise (R53.81) Active confirmed Problem Hormone replacement therapy (820732722) Hormone replacement therapy (Z79.890) Active confirmed Encounters Encounter Location Date Provider Diagnosis [facility] [place] ([address]) [address] [place] [phone] 02/16/2024 Jorge Antoine Hormone replacement therapy Z79.890 [facility] [place] ([address]) [address] [place] [address] 03/02/2024 Jorge Antoine Hormone replacement therapy Z79.890 ; Hypothyroidism, unspecified E03.9 and Hyperlipidemia, unspecified E78.5 [facility] ([facility]) [address] [place] [address] 03/31/2024 Jorge Antoine [facility] ([address]) [address] [place] [address] 03/16/2024 Jorge Antoine Hormone replacement therapy Z79.890 and Hypothyroidism, unspecified E03.9 [facility] [place] ([address]) [address] [place] [address] 02/16/2024 Jorge Antoine Chronic fatigue, unspecified R53.82 ; Other fatigue R53.83 ; Other malaise R53.81 ; Insomnia, unspecified G47.00 ; Abnormal weight gain R63.5 ; Decreased libido R68.82 and Other amnesia R41.3 [facility] [address] [facility] [address] [place] [address] 03/30/2024 Jorge Antoine Assessments Encounter Date Diagnosis (ICD Code) Assessment Notes Treatment Notes Treatment Clinical Notes Section Notes 02/16/2024 Chronic fatigue, unspecified (ICD-10 - R53.82) 02/16/2024 Other fatigue (ICD-10 - R53.83) 02/16/2024 Hormone replacement therapy (ICD-10 - Z79.890) 03/02/2024 Hypothyroidism, unspecified (ICD-10 - E03.9) Suboptimal T3. 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 Recheck T3 in 6-12 weeks with post-pellet labs. 03/02/2024 Hormone replacement therapy (ICD-10 - Z79.890) Reviewed labs. Taking estradiol cream. Consider Testosterone 125 mg pellet insertion. Will need to double dose DIM. Start Iodine Start Visbiome Start RYR-Synergy for dyslipidemia Start B complex Plus Start Fatty15 Increase Watton 3 to 4 grams per day Will continue Estradiol Cream over pellet 03/16/2024 Hypothyroidism, unspecified (ICD-10 - E03.9) On EMBEDDED ENGINEER Thyroid 30 mg daily with Iodine plust [...]
--- OUTSIDE RECORDS SUMMARY | 2024-08-19 02:16 | XMS_ITS | Clinical Summary ---
Author Organization [facility] Address [address] [address] Care Team Providers Care Astronomy Department Chair Name Role Phone Pcp, None Primary Care Provider Unavailabl e Source Comments [facility],non-owned Affiliates and Associated Physician Practices is amultiple site organization consisting of ambulatory clinics and hospital sitesin [place], [place], [place] and [place]. This disclosure is being madepursuant to the Care Everywhere program and may not contain all information available regarding this patient. Last updated 18.[facility] Allergies Active Allergy Reactions Criticality Noted Date [...] APPLICATION RECTALLY TWICE A DAY 11/14/2023 Active Dugspur-3 Fatty Acids (fish oil) 1000 MG capsule [...] 1 (one) tablet by mouth 07/07/2024 Active MARZIPAN MOLDER Thyroid 30 MG tablet 1/2 tablet on [...] Description 07/27/2024 10:30 AM CDT Office Visit [facility] - BANQUET SUPERVISOR [address] [place] [address] Coreen Vides MD History of [...] CDT Office Visit [facility] - BANQUET SUPERVISOR [address], [facility] [[email or web address] [address] [place] [address] Coreen Vides MD [address] [facility] [facility] [address] [place] [address] Health Maintenance Due Date Last Done Comments COLOGUARD (AGES 45-75) - COLON CA SCREENING 1962 COLON MONITORING 1962 COLONOSCOPY - COLON CA SCREENING 1962 CT COLONOGRAPHY - COLON CA SCREENING 1962 Colorectal Cancer Screening 1962 FIT - COLON CA SCREENING 1962 FLEX SIG - COLON CA SCREENING 1962 PAP SMEAR 1962 HIV SCREENING 1977 HEPATITIS C SCREENING 04/13/1980 DTAP/TDAP/TD VACCINES (1 - Tdap) 1981 PNEUMOCOCCAL VACCINE 50+ (1 of 1 - PCV) 2012 ZOSTER VACCINE (1 of 2) 2012 COVID-19 VACCINE ( season) 2024 07/21/2021, 06/23/2021 INFLUENZA VACCINE (#1) 2024 3, 04/04/2011, 03/01/2010, Additional history exists SCREENING FOR DIABETES 01/26/2024 DEPRESSION SCREENING 05/19/2024 01/26/2024 MAMMOGRAM 11/07/2024 11/07/2022, 10/18, 02/21/2020 LIPID TESTING 09/14/2028 09/15/2023 Respiratory Syncytial Virus (RSV) Vaccine Pt: or [...] age to complete this topic Care Teams Astronomy Department Chair Relationship Specialty Start Date End Date Pcp, None [address] [place] [address] PCP - General 01/26/24
--- OUTSIDE RECORDS SUMMARY | 2024-08-19 02:16 | XMS_ITS ---
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 MG 1/2 tablet on an emp ty stomach x 1 week, then 1 tablet daily there after as tolerated, on a empty stomach Orally Once a day 03/02/2024 Active Encounters Encounter Location Date Provider Diagnosis [facility] [place] ([address]) [address]Z [address] [place] [phone] 03/31/2024 Jorge Antoine Assessments Encounter Date Diagnosis [...] Notes * Barb GARCIAOB:1960 (64 yo F)Acc No.[id number]:03/31/2024 GenericFQ Patient: Rachell FLEMING Provider: Celena Antoine MD :1960 A ge:63 Y S ex:Female Date:03/31/2024 Address:[address] [place], [place] [id number] Subjective: * Chief Complaints: * 1 . 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
--- OUTSIDE RECORDS SUMMARY | 2024-08-19 02:16 | XMS_ITS | Clinical Summary ---
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 Gender Identity Not on file Sexual Orientation [...] ( season) 2024 07/21/2021, 06/23/2021 Influenza Vaccine (Season Ended) 2025 03/15/2013, 04/04/2011, 03/01/2010, Additional history exists DTaP/Tdap/Td Vaccine (3 - Td or Tdap) 08/05/2033 08/06/2023, 01/19/2010 Pneumococcal vaccine <65 Aged Out No longer eligible based on patient's age to complete this topic Insurance [employer] [place] [facility] [employer] [place] Care Teams Blood Bank Laboratory Technologist Relationship Specialty Start Date End Date Massiel Perez [address] [place] [address] PCP - General Family Medicine 11/07/23
--- OUTSIDE RECORDS SUMMARY | 2024-08-19 02:16 | XMS_ITS ---
Author Organization [facility] Address [address] [place] [address] Care Team Providers Care Film Processing Supervisor Name Role Phone Arash Jorge Unavailable [phone] REASON FOR VISIT Message Encounters Encounter Location Date Provider Diagnosis [facility] [address] [place] [address] 03/30/2024 Jorge Antoine Plan Of Treatment No Information Progress Notes * Barb GARCIAOB:1960 (63 yo F)Acc No.[id number]:03/30/2024 Patient: Rachell FLEMING :1960 A ge:63 Y S ex:Female Address:[address] [place], [address] * true * Date: Generated for Kate huerta/Italo/eTransmitting on: 0 08/19/2024 02:16 AM CDT
--- OUTSIDE RECORDS SUMMARY | 2024-08-19 02:16 | XMS_ITS | Referral Summary ---
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
--- OUTSIDE RECORDS SUMMARY | 2024-08-19 02:16 | XMS_ITS ---
Author Organization [facility] Address [address] [place] [address] Care Team Providers Care Psychiatric Aide Instructor Name Role Phone Jorge Antoine Unavailable [phone] REASON FOR VISIT BHRT Pellet Insertion Encounters Encounter Location Date Provider Diagnosis [facility] [place] ([address]) [address] [place] [phone] 07/13/2024 Jorge Antoine Plan Of Treatment No Information Progress Notes * Barb GARCIAOB:1960 (64 yo F)Acc No.[id number]:07/13/2024 EP Pellet Insertion Patient: Rachell FLEMING Provider: Celena Antoine MD :1960 A ge:64 Y S ex:Female Date:07/13/2024 Address:[facility] Subjective: * Chief Complaints: * 1 . BHRT Pellet Insertion. * Medical History: Objective: * Vitals: Assessment: Plan: * Treatment: * Billing Information: * Visit Code: * Procedure Codes: * Electronic signature of Nayana Antoine MD, FAAAAI on 08/19/2024 at 02:16 AM CDT Sign off status: Pending * Provider: Celena Antoine MD Date: 07/13/2024 Generated for Kate huerta/Italo/Kaylaitting on: 0 08/19/2024 02:16 AM CDT
--- NOTE | 2024-08-19 08:12 | P.PNAN_ITS ---
Anes - Initial Pre Proc Eval Procedure: Operation Date: 08/19/24 12:30 Proposed Procedures p Left Total Hip Arthroplasty - Chi Ghotra MD Date/Time: 08/19/24 08:12 Surgeon: Chi Ghotra MD Pre Op Diagnosis: Prim OA Lt Hip Patient Data Age: 64 Gender: F Height: 1.73 m Weight: 76.2 kg Last Vital Signs Temp 36.7 C 07/29/24 11:27 Pulse 66 07/29/24 11:27 Resp 18 07/29/24 11:27 BP 147/91 H 07/29/24 11:27 Pulse Ox 100 07/29/24 11:27 O2 Del Method Room Air 07/29/24 11:27 Allergies Allergy/AdvReac Type Severity Reaction Status Date / Time atenolol AdvReac Hypotension Verified 08/19/24 10:45 Home Medications ?Medication ?Instructions ?Recorded ?Confirmed ?Type fluconazole 150 mg tablet 150 mg PO WEEKLY 02/06/24 08/19/24 History gabapentin 600 mg tablet 600 mg PO QHS 02/06/24 08/19/24 History hydrocortisone 2.5 % topical cream 1 applic topical BID PRN 02/06/24 08/09/24 History hemorrhoids nitrofurantoin macrocrystal 50 mg 50 mg PO PRN 02/06/24 08/19/24 History capsule progesterone micronized 100 mg 100 mg PO QPM 02/06/24 08/19/24 History capsule estradiol 0.01% (0.1 mg/gram) 1 g vaginal 3XW 04/08/24 08/09/24 History vaginal cream diclofenac sodium 50 mg 50 mg PO BID #180 tabs 05/09/24 08/09/24 Rx tablet,delayed release biotin 2,500 mcg capsule 2,500 mcg PO DAILY 07/29/24 08/19/24 History cholecalciferol (vitamin D3) 125 125 mcg PO DAILY 07/29/24 08/19/24 History mcg (5,000 unit) capsule garlic 1,000 mg capsule (garlic 1,000 mg PO DAILY 07/29/24 08/09/24 History oil) lutein 20 mg capsule 20 mg PO DAILY 07/29/24 08/19/24 History magnesium 250 mg tablet 250 mg PO DAILY 07/29/24 08/19/24 History magnesium hydroxide 400 mg/5 mL 5 ml PO HS 07/29/24 08/19/24 History oral suspension (Milk of Magnesia) omega-3 fatty acids 2,500 mg PO DAILY 07/29/24 08/19/24 History vitamin B complex (Vitamins B 1 cap PO DAILY 07/29/24 08/19/24 History Complex capsule) zinc 50 mg tablet 50 mg PO DAILY 07/29/24 08/19/24 History lorazepam 1 mg tablet 1 mg PO QHS PRN sleep #30 tabs 08/02/24 08/19/24 Rx aspirin 81 mg tablet,delayed 81 mg PO BID 14 days #28 tabs 08/19/24 Rx release oxycodone-acetaminophen 5 mg-325 1 - 2 tablet PO Q4-6H PRN pain 7 08/19/24 Rx mg tablet days #30 tabs Patient hx anesthesia problems: none Family hx anesthesia problems: none Results Review: All pre-operative results and documents have been reviewed as part of the pre- operative evaluation. [facility] Past Medical History Medical History (Updated 08/19/24 @ 11:49 by Eric Jacobs DO) Ascending aortic aneurysm Hypertension Dyslipidemia Hypothyroidism Left knee DJD Ovarian cyst Cyst, sinus nasal Thoracic aortic aneurysm Family history of gynecological problem with orthopedic problem Sleep apnea Arthritis Allergies Surgical History Surgical History (Updated 08/19/24 @ 09:11 by EDWIN Archibald) H/O sinus surgery History of spinal fusion [place] teeth removed Family History Family History Mother Hypertension Cerebrovascular accident Social History Social History Smoking status: Never smoker Additional smoking assessment comments: DENIES ANY FORM OF TOBACCO USE Alcohol intake: current Drinks per week: 1 Do You Feel Safe in your Home?: Yes Lack of Transportation: No Lack of Food: Never True Current Housing: I Have Housing Concerned About Future Housing: No Difficulty Paying Gas/Electric Bills: No Difficulty Paying for Meds: No Currently Unemployed: No Education: Master's Degree or Higher Living arrangements: with family Spiritual care concerns: No Anes - Eval Final PreProcedure Day of Procedure 08/19/24 08:12 Patient weight: normal Heart: regular rate and rhythm Lungs: clear to auscultation Airway: Mallampati scale class II Neurological: alert and oriented Last oral intake: >/= 8 hours ASA classification: III Emergent: no Anesthetic plan: proceed Anesthesia type and monitoring: general LMA and standard monitoring Results Review: All pre-operative results and documents have been reviewed as part of the pre- operative evaluation. Informed Consent: The patient's anesthetic plan and its attendant risks and benefits were discussed with the patient/family/POA. Questions were solicited and answers provided to the satisfaction of the patient/family/POA.
[2024-08-19] MEDS: ACETAMINOPHEN 500 MG TABLET 1000 MG PO (11:10)
[2024-08-19] MEDS: LACTATED RINGERS 1,000 ML 30 ML IV CONT ×2 (11:15→16:23)
[2024-08-19] MEDS: TRANEXAMIC ACID 1,000MG/ISO100 1,000 MG/100 ML BAG 200 MG IVPB (11:15)
[2024-08-19] MEDS: SCOPOLAMINE 1 MG PATCH 1 PATCH TRANSDERM (12:00)
[2024-08-19] MEDS: MIDAZOLAM HCL (*CRX) 2 MG/2 ML VIAL IV PUSH (12:18)
--- NOTE | 2024-08-19 12:44 | WPDHPUPDATE1 ---
History and Physical Update Update Date/Time: 08/19/24 12:44 History and Physical has been reviewed, including an updated exam of the patient. There are NO changes in the patient's condition. Risks, benefits, and alternatives have been discussed and questions answered. Patient agrees to proceed with procedure.
[2024-08-19] MEDS: ceFAZolin 2 GM/D5W 50 ML 2 GM/50 ML BAG IVPB ×2 (12:56→21:13)
[2024-08-19] MEDS: SODIUM CHLORIDE 0.9% IV 37.7 ML, MORPHINE SULFATE INJ (*CRX) 2 MG, ROPivacaine HCL 1% 2... INFILTRATE (13:37)
[2024-08-19] MEDS: TRANEXAMIC ACID 1,000 MG/10 ML AMPUL 1000 MG IV PUSH (14:56)
[2024-08-19] MEDS: fentaNYL CITRATE INJ (*CRX) 100 MCG/2 ML VIAL 25 MCG IV PUSH ×8 (15:48→16:13)
--- NOTE | 2024-08-19 16:07 | P.OP_ITS ---
Procedure Note - Detailed Date of Procedure 08/19/24 Pre-op Diagnosis Left hip degenerative arthritis. Post-op Diagnosis Same Procedure Performed Left Total Hip Arthroplasty Surgeon Chi Ghotra MD Line Fisher Adrianna Zaragoza PA-C Anesthesia General Findings Direct superior approach hip. Excellent bone quality. Description of Procedure The patient was given preoperative antibiotics. A general anesthetic was administered. The patient was carefully placed in the lateral decubitus position on the PEG board. The shoulders and hips were carefully positioned for component and leg length positioning reference. The hip was prepped and draped in the usual sterile fashion. A longitudinal incision was created over the posterior aspect of the greater trochanter. Careful dissection was brought down through the deep fascia with electrocautery. The direct superior approach to the hip was performed. The gluteus junito fibers were split in line with their fibers. The conjoined tendon of the piriformis and obturator internus was removed from the femur and reflected. The sciatic nerve was protected. The capsulotomy was begun at the femur inferiorly along the neck and carried proximally. The capsule was elevated posteriorly inferior and posterior superior. The hip was dislocated. The femoral neck was cut according to preoperative templating measured from the center of the femoral head. The femoral head was removed. The acetabulum was carefully exposed. The labrum was resected. The acetabulum was sequentially reamed to one over the intended cup size. The cup was impacted into position with excellent press-fit. Typical anatomic landmarks, including the bony contact points as well as the inferior transverse acetabular ligament were used to confirm cup positioning with preoperative templating. Attention was turned to the femur, which was carefully exposed. The hip was reamed and then broached sequentially. Excellent press-fit was obtained with the broach. The hip was trialed. Measurements were utilized, including the lesser trochanter as well as the center of the femoral head and the tip of the trochanter, and excellent assessment of the offset and leg lengths were confirmed. Intraoperative x-ray confirmed appropriate implant position. The real component was impacted into position. Trialing confirmed appropriate leg length and offset with soft tissue balancing as well apparent feel of the leg, both at the knee and the heel. The iliotibial band tension was optimal. The conjoint tendon reduced anatomically. The hip was copiously irrigated with pulsatile lavage periodically throughout the procedure. The real components were then assembled and reduced. The hip was stable throughout typical maneuvers, including extension, external rotation to 70 degrees, the position of sleep as well as flexion to 90 degrees with internal rotation past 35 degrees. The shake test confirmed stability without impingement. The capsule was repaired with a running Ethibond suture. Piriformis and obturator internus tendons were repaired to their origin. The deep fascia was repaired with running number 2 barbed suture, followed by 2-0 Stratafix suture and 3-0 Stratafix suture in the dermis. Steri-Strips were placed on the skin, followed by a sterile occlusive dressing. There were no complications. Meticulous hemostasis was maintained with the AquaMantys device. The patient was brought to the recovery room in stable condition. There were no complications. Physician life science research assistant, Adrianna Zaragoza PA-C, required for surgery; including patient positioning, draping, tissue retraction, maintaining instrument position, hip dislocation/ relocation, cement removal, wound closure, and dressing placement. Implants The Dai Insignia hip stem, standard offset size 3 , was utilized with excellent press-fit. The 48 mm Trident II acetabular component was impacted with excellent press-fit stability. Standard polyethylene liner the + 5, 36 mm Biolox ceramic femoral head was utilized. Estimated Blood Loss 200 Drains No Packing No Pathology None sent Complications No immediate complications Condition Stable Disposition PACU [facility] Billing Surgery - Charge Forward: Surgery Billing
[2024-08-19] MEDS: HYDROmorphone HCL INJ (*CRX) 1 MG/ML SYR 0.25 MG IV PUSH ×4 (16:24→16:41)
[2024-08-19] MEDS: ACETAMINOPHEN 325 MG TABLET 650 MG PO (17:15)
[2024-08-19] MEDS: SENNA/DOCUSATE SODIUM TABLET 2 TAB PO (17:16)
[2024-08-19] MEDS: DICLOFENAC SOD 25 MG TABLET.EC 50 MG PO (17:17)
[2024-08-19] MEDS: oxyCODONE/ACETAMINOPHEN (*CRX) 10-325 MG TABLET 1 TAB PO (17:17)
[2024-08-19] MEDS: ONDANSETRON INJ 4 MG/2 ML VIAL IV PUSH ×2 (17:21→21:15)
--- NOTE | 2024-08-19 17:41 | ADMGEN ---
This patient, Rachell Chilel, was admitted to 3 [facility] Surg Room 328-01. Patient/family oriented to hospital policies and general routines including ID bracelet, bed and alarms, visiting hours, pain management, procedures, bathroom and other care routines, personal items, smoking policy, room service/diet, and visiting hours. Information on how to activate the Rapid Response Team has been discussed. Patient/Family are encouraged to report perceived risks to care and to ask questions if they do not understand what they are told or what they should do. Report from Chelsey in OR. PT arrived at 1700.
[2024-08-19] MEDS: CYCLOBENZAPRINE HCL 10 MG TABLET PO (19:05)
[2024-08-19] MEDS: GABAPENTIN 300 MG CAPSULE 600 MG PO (21:13)
[2024-08-19] MEDS: FAMOTIDINE 20 MG TABLET PO (21:13)
[2024-08-19] MEDS: ASPIRIN 81 MG ENTERIC TABLET PO (21:13)
[2024-08-19] MEDS: HYDROmorphone HCL INJ (*CRX) 1 MG/ML SYR IV PUSH (21:14)
[2024-08-19] MEDS: LORazepam (*CRX) 1 MG TABLET PO (22:12)
[2024-08-20 02:24] VITALS: BP 147/88; PULSE 91; RESP 16; TEMP 36.7; O2SAT 99
[2024-08-20] MEDS: ceFAZolin 2 GM/D5W 50 ML 2 GM/50 ML BAG IVPB (04:19)
[2024-08-20] MEDS: ACETAMINOPHEN 325 MG TABLET 650 MG PO (04:20)
[2024-08-20] MEDS: oxyCODONE/ACETAMINOPHEN (*CRX) 10-325 MG TABLET 1 TAB PO (04:20)
[2024-08-20 05:55] LABS: Basophils Absolute Auto 0.1 K/mm3 (0.0-0.1); Basophils Percent Auto 0.4 % (0.2-1.2); Eosinophils Absolute Auto 0.1 K/mm3 (0-0.3); Hemoglobin 11.6 g/dL (12.0-15.0); Immature Granulocyte Absolute 0.04 K/mm3 (0.00-0.031); Immature Granulocyte Percent A 0.4 % (0-0.5); Lymphocytes Absolute Auto 1.18 K/mm3 (0.9-3.2); Lymphocytes Percent Auto 10.5 % (18.3-44.2); Mean Corpuscular HGB Conc 32.2 g/dl (32-36); Mean Corpuscular Hemoglobin 31.5 pg (26-34); Mean Corpuscular Volume 97.8 fl (80-100); Mean Platelet Volume 10.5 fl (7.4-10.4); Monocytes Percent Auto 9.1 % (2.6-8.5); Neutrophils Absolute Auto 8.9 K/mm3 (1.3-6.7); Neutrophils Percent Auto 78.6 % (45.5-73.1); Platelet Count Result 216 k/mm3 (150-375); Red Blood Count 3.68 M/mm3 (4.2-5.4); Red Cell Distribution Width 13.3 % (11.5-14.5); White Blood Count 11.3 K/mm3 (4.5-10.0)
[2024-08-20 06:13] VITALS: BP 107/68; PULSE 93; RESP 16; TEMP 37.1; O2SAT 96
[2024-08-20 06:21] LABS: Anion Gap 3 mmol/L (4-12); Blood Urea Nitrogen 13 mg/dL (7-17); Calcium 7.9 mg/dL (8.4-10.2); Carbon Dioxide 29 mmol/L (22-30); Chloride 103 mmol/L (98-107); Estimated CRCL calculation 59 ml/min; Estimated Glomerular Filt Rate > 60; Glucose 102 mg/dL (65-110); Potassium 3.7 mmol/L (3.4-5.0); Sodium 135 mmol/L (137-145)
[2024-08-20] MEDS: traMADol HCL (*CRX) 50 MG TABLET PO (08:41)
[2024-08-20] MEDS: DICLOFENAC SOD 25 MG TABLET.EC 50 MG PO (08:42)
[2024-08-20] MEDS: SENNA/DOCUSATE SODIUM TABLET 2 TAB PO (08:42)
[2024-08-20] MEDS: polyethylene glycoL 3350 17 GM POWD.PACK PO (08:42)
[2024-08-20] MEDS: FAMOTIDINE 20 MG TABLET PO (08:43)
[2024-08-20] MEDS: ASPIRIN 81 MG ENTERIC TABLET PO (08:43)
[2024-08-20] MEDS: ONDANSETRON INJ 4 MG/2 ML VIAL IV PUSH (09:25)
== END 2024-08-20 09:50 | disposition home or self-care (01) ==
LOC: ANHSURGERY 10:32 → ANH3MEDSUR 16:56
PROVIDERS: Physician Assistant Surgical; PCP Family Medicine; Visit Provider Orthopaedic Surgery
PROC: (CPT 27130; principal; 2024-08-19 12:30)
DX: M16.12 Unilateral primary osteoarthritis, left hip (principal); I10 Essential (primary) hypertension; E78.5 Hyperlipidemia, unspecified; E03.9 Hypothyroidism, unspecified; M17.12 Unilateral primary osteoarthritis, left knee; G47.30 Sleep apnea, unspecified; I47.10 Supraventricular tachycardia, unspecified; I71.21 Aneurysm of the ascending aorta, without rupture; I71.20 Thoracic aortic aneurysm, without rupture, unspecified; Z79.82 Long term (current) use of aspirin; Z79.891 Long term (current) use of opiate analgesic; Z98.890 Other specified postprocedural states; Z98.1 Arthrodesis status; Z82.49 Family history of ischemic heart disease and other diseases of the circulatory system
CPT/HCPCS: 27130; 36415; 73502; 80048; 85025; 86850; 86900; 86901; 97110; 97161; 97165; 97535; 99199; A9270; C1776; J0171; J0690; J1100; J1171; J1885; J2003; J2250; J2270; J2405; J2704; J2795; J3010; J7120

== ENCOUNTER 2024-11-22 16:53 | Emergency (ER) | payer BC, SELFPAY ==
--- OUTSIDE RECORDS SUMMARY | 2024-11-22 16:58 | XMS_ITS | Patient Health Record ---
Author Organization [facility] ([address]) Address [address] [place] [phone] Care Team Providers Care Scanning Tech Name Role Phone Jorge Antoine Unavailable [phone] Results Component Value Reference Range Notes HRT Female Pre Pellet Reviewed date:06/28/2024 12:19:10 PM Interpretation:Abnormal Performing Lab:[facility], [address] [place] [id number], Phone - [phone], Director - Elva Notes/Report: Glucose 88 70-99 [...] ALT (SGPT) 16 0-32 IU/L Vitamin B12 333 352-6782 pg/mL Vitamin D, 25-Hydroxy 60.9 30.0-100.0 ng/mL Vitamin D deficiency has been defined by the [place] of Medicine and an Endocrine Society practice guideline as a level of serum 25-OH vitamin D less than 20 ng/mL (1,2). The Endocrine Society went on to further define vitamin D insufficiency as a level between 21 and 29 ng/mL (2). 1. IOM ([place] of Medicine). 2010. Dietary reference intakes for calcium and D. [place]: The National Academies Press. 2. June MF, Blaze HANNAH, Zaida SEGOVIA, et al. Evaluation, treatment, and prevention of vitamin D deficiency: an Endocrine Society clinical practice guideline. JCEM. 2010; 96(2):1911-30. TSH 2.080 0.450-4.500 uIU/mL Triiodothyronine (T3), Free [...] Serum Reviewed date:02/27/2024 06:53:09 PM Interpretation:Normal Performing Lab:[address] [id number], Phone - [phone], Director - [facility] Notes/Report: Uric Acid 3.8 3.0-7.2 mg/dL Therapeutic ta rget for gout patients: <6.0 -Hemoglobin A1c Reviewed date:02/27/2024 06:55:32 PM Interpretation:Normal Performing Lab:[address] [id number], Phone - [phone], Director - [facility] Notes/Report: Hemoglobin A1c 5.6 4.8-5.6 % . Prediabetes: 5.7 - 6.4 Diabetes: >6.4 Glycemic control for adults with diabetes: <7.0 -Insulin, Fasting Reviewed date:02/27/2024 06:55:07 PM Interpretation:Normal Performing Lab:[address] [id number], Phone - [phone], Director - [facility] Notes/Report: Insulin 3.6 2.6-24.9 uIU/mL -Ferritin, Serum Reviewed date:02/27/2024 06:52:03 PM Interpretation:Normal Performing Lab:[address] [id number], Phone - [phone], Director - [facility] Notes/Report: Ferritin 47 15-150 ng/mL -C-Reactive Protein, Quant Reviewed date:02/27/2024 06:52:13 PM Interpretation:Normal Performing Lab:[address] [id number], Phone - [phone], Director - [facility]/Report: C-Reactive Protein, Quant <1 0-10 mg/L -Lipid Panel With LDL/HDL Ra sara Reviewed date:06/28/2024 12:19:10 PM Interpretation:Abnormal Performing Lab:[facility] [address] [place] [id number], Phone - [phone], Director - Elva Notes/Report: Cholesterol, Total 324 100-199 mg/dL Triglycerides 152 0-149 mg/dL HDL Cholesterol 61 >39 mg/dL VLDL Cholesterol Rishi 28 5-40 mg/dL LDL Chol Calc ([facility]) 235 0-99 mg/dL LDL Calc Comment: Consider evaluating for Familial Hypercholesterolemia(FH), if clinically indicated. 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 MG 1/2 tablet on an emp ty stomach x 1 week, then 1 tablet daily there after as tolerated, on a empty stomach Orally Once a day 03/02/2024 Active Problems Problem Type SNOMED Code ICD Code Onset Dates Problem Status W/U Status Risk Notes Problem Hypothyroidism (67158580) Hypothyroidism, unspecified (E03.9) Active confirmed Problem Hyperlipidemia (92233592) Hyperlipidemia, unspecified (E78.5) Active confirmed Problem Insomnia (430202274) Insomnia, unspecified (G47.00) Active confirmed Problem Amnesia (25124515) Other amnesia (R41.3) Active confirmed Problem Chronic fatigue syndrome (disorder) (37293772) Chronic fatigue, unspecified (R53.82) Active confirmed Problem Fatigue (21233877) Other fatigue (R53.83) Active confirmed Problem Abnormal weight gain (579898707) Abnormal weight gain (R63.5) Active confirmed Problem Reduced libido (7530306) Decreased libido (R68.82) Active confirmed Problem Malaise (738898593) Other malaise (R53.81) Active confirmed Problem Hormone replacement therapy (255661838) Hormone replacement therapy (Z79.890) Active confirmed Encounters Encounter Location Date Provider Diagnosis [facility] ([address]) [address] [place] [phone] 02/16/2024 Jorge Antoine Hormone replacement therapy Z79.890 [facility] ([address]) [address] [place] [phone] 03/02/2024 Jorge Antoine Hormone replacement therapy Z79.890 ; Hypothyroidism, unspecified E03.9 and Hyperlipidemia, unspecified E78.5 [facility] ([address]) [address] [place] [phone] 03/31/2024 Jorge Antoine [facility] ([address]) [address] [place] [address] 03/16/2024 Jorge Antoine Hormone replacement therapy Z79.890 and Hypothyroidism, unspecified E03.9 [facility] ([address]) [address] [place] [address] 02/16/2024 Jorge Antoine Chronic fatigue, unspecified R53.82 ; Other fatigue R53.83 ; Other malaise R53.81 ; Insomnia, unspecified G47.00 ; Abnormal weight gain R63.5 ; Decreased libido R68.82 and Other amnesia R41.3 [facility] [address] [facility] [address] [place] [address] 03/30/2024 Jorge Antoine Assessments Encounter Date Diagnosis (ICD Code) Assessment Notes Treatment Notes Treatment Clinical Notes Section Notes 02/16/2024 Chronic fatigue, unspecified (ICD-10 - R53.82) 02/16/2024 Other fatigue (ICD-10 - R53.83) 02/16/2024 Hormone replacement therapy (ICD-10 - Z79.890) 03/02/2024 Hypothyroidism, unspecified (ICD-10 - E03.9) Suboptimal T3. Start FOXING CLOSER Thyroid 15 mg x 1 week, then 30 mg thereafter. Recheck T3 in 6-12 weeks with post-pellet labs. 03/02/2024 Hormone replacement therapy (ICD-10 - Z79.890) Reviewed labs. Taking estradiol cream. Consider Testosterone 125 mg pellet insertion. Will need to double dose DIM. Start Iodine Start Visbiome Start RYR-Synergy for dyslipidemia Start B complex Plus Start Fatty15 Increase Kintyre 3 to 4 grams per day Will continue Estradiol Cream over pellet 03/16/2024 Hypothyroidism, unspecified (ICD-10 - E03.9) On FOXING CLOSER Thyroid 30 mg daily with Iodine plust [...]
--- OUTSIDE RECORDS SUMMARY | 2024-11-22 16:58 | XMS_ITS ---
Author Organization [facility] ([address]) Address [address] [place] [phone] Care Team Providers Care Extrusion Technician Name Role Phone Jorge Antoine Unavailable [phone] REASON FOR VISIT Pellet Pain/Discomfort Medications Medication SIG (Take, Route, Fr equency, Duration) Notes Start Date End Date Status GAS DISPENSER Thyroid 30 MG 1/2 tablet on an emp ty stomach x 1 week, then 1 tablet daily there after as tolerated, on a empty stomach Orally Once a day 03/02/2024 Active Encounters Encounter Location Date Provider Diagnosis [facility] ([address]) [address] [place] [phone] 03/31/2024 Jorge Antoine Assessments Encounter Date Diagnosis [...] Notes * Barb GARCIAOB:1960 (64 yo F)Acc No.[id number]:03/31/2024 GenericFQ Patient: Rachell FLEMING Provider: Celena Antoine MD :1960 A ge:63 Y S ex:Female Date:03/31/2024 Address:[address] [place], [place] [id number] Subjective: * Chief Complaints: * 1 . Pellet Pain/Discomfort. * HPI: * Aesthetics & Wellness: She presents to clinic today with complaints of pain and tenderness at the left gluteal pellet insertion site. She reports persistent pain i n the left buttocks for the last two weeks that is worse when she sits. She is currently in PT twice a week for a left hip surgery in November. * Medical History: * Medications: T aking GAS DISPENSER Thyroid 30 MG Tablet 1/2 tablet on an empty stomach x 1 week, then 1 tablet daily there after as tolerated, on a empty stomach Orally Once a day Objective: * Vitals: Assessment: Plan: * Treatment: * Billing Information: * Visit Code: * Procedure Codes: * Electronic signature of Nayana Antoine MD, FAAAAI on 11/22/2024 at 04:58 PM CDT Sign off status: Pending * Provider: Celena Antoine MD Date: 1 05/31/2023 Generated for Printi deanna/Italo/eTransmitting on: 0 11/22/2024 04:58 PM CDT History and Physical Notes * HPI (History of Present Illness) Category Sub-Category Detail Notes Category Not es *Aesthetics & Wellness She p resents to clinic today with complaints of pain and tenderness at the left gluteal pellet insertion site. She reports persistent pain in the left buttocks for the last two weeks that is worse when she sits. She is currently in PT twice a week for a left hip surgery in November.
--- OUTSIDE RECORDS SUMMARY | 2024-11-22 16:58 | XMS_ITS | Clinical Summary ---
Author Organization [email or web address] Address [address] [place] [address] Care Team Providers Care Refinery Operator Vapor Recovery Unit Name Role Phone Pcp, None Primary Care Provider Unavailabl e Source Comments [facility],non-owned Affiliates and Associated Physician Practices is amultiple site organization consisting of ambulatory clinics and hospital sitesin [place], [place], [place] and [place]. This disclosure is being madepursuant to the Care Everywhere program and may not contain all information available regarding this patient. Last updated 18.[email or web address] Allergies Active Allergy Reactions Criticality Noted Date Comments Codeine Other High 09/19/2006 Gets really hyper Gets really hyper Gets really hyper Gets really hyper Gets really hyper Gets really hyper Hyper Medications * Be aware that medications may not be up to date on this document. Alwaysverify current medications with the patient. DICLOFENAC SOD & TROLAMINE ANOOP CO 3 Active hydrocortisone 2.5 % cream - camphor 0.5% - menthol 1% CREA 3 Active diclofenac sodium EC (Voltaren) 50 MG tablet Take 1 (one) tablet by mouth 2 times daily 4 Active estradiol (Estradiol) 0.0375 MG/24HR 3 Active gabapentin (Neurontin) 300 MG capsule Take 2 (two) capsules by mouth at bedtime Active hydrocortisone, rectal, (Anusol-HC) 2.5 % cream PLACE 1 APPLICATION RECTALLY TWICE A DAY 4 Active [place]-3 Fatty Acids (fish oil) 1000 MG capsule Take 1 (one) capsule by mouth once daily 4 Active Progesterone 100 MG capsule TAKE 1 CAPSULE BY MOUTH EVERY DAY AT BEDTIME 9 Active Multiple Vitamins-Mineral s (BIOTECT PLUS PO) Vh balance 3 Active estriol-estradio l 0.1-0.4 MG/GM cmpd cream Apply to affected area once daily Active nitrofurantoin macrocrystal (Macrodantin) 50 MG capsuleIndicatio ns:History of recurrent UTIs Take 1 (one) capsule by mouth once daily as needed 90 capsule 3 4 Active fluconazole (Diflucan) 150 MG tabletIndication s:History of vaginitis Take 1 (one) tablet by mouth every 7 days 12 tablet 3 4 Active LORazepam (Ativan) 1 MG tablet Take 1 (one) tablet by mouth 5 Active 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 Thyroid 30 MG tablet 1/2 tablet on an empty stomach x 1 week, then 1 tablet daily there after as tolerated, on a empty stomach Orally Once a day 4 Active Active Problems Problem Noted Date Diagnosed [...] Recorded Patient Health Questionnaire-2 Score 0 01/19/2024 Comments No Sex and Gender Information Value Date Recorded Sex Assigned at Female 02/24/2024 11:01 AM CDT Legal Sex Female 12:39 PM CDT Gender Identity Female 02/24/2024 11:01 AM [...] 10:21 AM CDT Height 172.7 cm (5' 8) 07/27/2024 10:21 AM CDT Body Mass Index 25.42 07/27/2024 10:21 AM CDT Plan of Treatment Upcoming Encounters Date Type Department Care Team (Late st Contact Info) Description 03/01/2025 2:00 PM CDT Office Visit [facility] - ASSISTANT TERMINAL MANAGER [address], [facility] [address] [place] [address] Coreen Vides MD [address] [facility] [facility] [email or web address] [address] [place] [address] Health Maintenance Due Date Last Done Comments COLOGUARD (AGES 45-75) - COLON CA SCREENING 1960 COLON MONITORING 1962 COLONOSCOPY - COLON CA SCREENING 1962 CT COLONOGRAPHY - COLON CA SCREENING 1960 Colorectal Cancer Screening 1960 FIT - COLON CA SCREENING 1962 FLEX SIG - COLON CA SCREENING 1962 HIV SCREENING 1977 HEPATITIS C SCREENING 04/13/1980 DTAP/TDAP/TD VACCINES (1 - Tdap) 1981 PAP SMEAR 1983 PNEUMOCOCCAL VACCINE 50+ (1 of 1 - PCV) 2012 ZOSTER VACCINE (1 of 2) 2012 Respiratory Syncytial Virus (RSV) Vaccine Pt: or over 60 yrs (1 - Risk 60-74 years 1-dose series) 2022 COVID-19 VACCINE ( season) 2024 07/21/2021, 06/23/2021 DEPRESSION SCREENING 05/19/2024 01/26/2024 MAMMOGRAM 11/07/2024 11/07/2022, 10/18, 02/21/2020 INFLUENZA VACCINE (#1) 2025 3, 04/04/2011, 03/01/2010, Additional history exists SCREENING FOR DIABETES 11/12/2026 4, 11/13/2023, 10/29/2023, Additional history exists LIPID TESTING 09/14/2028 09/15/2023 HEPATITIS B VACCINE Aged Out No longe [...] patient's age to complete this topic Insurance [employer] Care Teams Refinery Operator Vapor Recovery Unit Relationship Specialty Start Date End Date Pcp, None [address] [place] [address] PCP - General 01/26/24
--- OUTSIDE RECORDS SUMMARY | 2024-11-22 16:59 | XMS_ITS | Clinical Summary ---
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 Gender Identity Not on file Sexual Orientation Not on file Obstetrics History Last Filed Vital Signs Vital Sign Reading Time Taken Comments Blood Pressure - - Pulse - - Temperature - - Respiratory Rate - - Oxygen Saturation - - Inhaled Oxygen Concentration - - Weight 75.8 kg (167 lb 3.2 oz) 12/09/2023 10:22 AM CDT Height 170.7 cm (5' 7.2) 12/09/2023 10:22 AM CD T Body Mass [...] season) 2024 07/21/2021, 06/23/2021 Influenza Vaccine (#1) 2025 3, 04/04/2011, 03/01/2010, Additional history exists DTaP/Tdap/Td Vaccine (3 - Td or Tdap) 08/05/2033 08/06/2023, 01/19/2010 Pneumococcal vaccine <65 Aged Out No longer eligible based on patient's age to complete this topic Insurance [employer] [facility] [employer] Care Teams Teller Supervisor Relationship Specialty Start Date End Date Massiel Perez [id number] [place] [address] PCP - General Family Medicine 11/07/23
--- OUTSIDE RECORDS SUMMARY | 2024-11-22 16:59 | XMS_ITS | Referral Summary ---
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
--- OUTSIDE RECORDS SUMMARY | 2024-11-22 16:59 | XMS_ITS ---
Author Organization [facility] ([address]) Address [address] [place] [phone] Care Team Providers Care Spinning Machine Tender Name Role Phone Jorge Antoine [phone] REASON FOR VISIT BHRT Pellet Insertion Encounters Encounter Location Date Provider Diagnosis [facility] ([address]) [address] [place] [phone] 07/13/2024 Jorge Anotine Plan Of Treatment No Information Progress Notes * Barb GARCIAOB:1960 (64 yo F)Acc No.[id number]:07/13/2024 EP Pellet Insertion Patient: Rachell FLEMING Provider: Celena Antoine MD :1960 A ge:64 Y S ex:Female Date:07/13/2024 Address:[address] [place], [place] [phone] Subjective: * Chief Complaints: * 1 . BHRT Pellet Insertion. * Medical History: Objective: * Vitals: Assessment: Plan: * Treatment: * Billing Information: * Visit Code: * Procedure Codes: * Electronic signature of Nayana Antoine MD, FAAAAI on 11/22/2024 at 04:58 PM CDT Sign off status: Pending * Provider: Celena Antoine MD Date: 07/13/2024 Generated for Kate huerta/Italo/eTmariesmitting on: 11/22/2024 04:58 PM CDT
--- OUTSIDE RECORDS SUMMARY | 2024-11-22 17:01 | XMS_ITS | Continuity of Care Document ---
Author Organization [employer] [facility] Address [address] [facility] [address] [place] [address] Phone Care Team Providers Care Fundraising Consultant Name Role Phone Garland PTFrederick Unavailable Unavailable Procedures Procedure Date Therapeutic Activities Neuromuscular Re-Ed Therapeutic Activities Neuromuscular Re-Ed Therapeutic Activities Neuromuscular Re-Ed Therapeutic Activities Neuromuscular Re-Ed Therapeutic Activities Neuromuscular Re-Ed Therapeutic Activities Neuromuscular Re-Ed Doc neg elder mal no plan PT Evaluation Moderate Complexity Therapeutic Activities Therapeutic Activities Neuromuscular Re-Ed Therapeutic Activities Neuromuscular Re-Ed Therapeutic Activities Neuromuscular Re-Ed Therapeutic Activities Neuromuscular Re-Ed Doc neg elder mal no plan PT Evaluation Low Complexity Therapeutic Activities Therapeutic Activities Neuromuscular Re-Ed Therapeutic Exercise Progress Note Therapeutic Activities Neuromuscular Re-Ed Therapeutic Exercise Therapeutic Activities Neuromuscular Re-Ed Therapeutic Exercise Therapeutic Activities Neuromuscular Re-Ed Therapeutic Exercise Therapeutic Activities Neuromuscular Re-Ed Therapeutic Exercise Therapeutic Activities Neuromuscular Re-Ed Therapeutic Exercise Therapeutic Activities Neuromuscular Re-Ed Therapeutic Exercise Therapeutic Activities Neuromuscular Re-Ed Therapeutic Exercise Therapeutic Activities Neuromuscular Re-Ed Therapeutic Exercise Progress Note Therapeutic Activities Neuromuscular Re-Ed Therapeutic Exercise Therapeutic Activities Neuromuscular Re-Ed Therapeutic Exercise Therapeutic Activities Neuromuscular Re-Ed Therapeutic Exercise Therapeutic Activities Neuromuscular Re-Ed Therapeutic Exercise Therapeutic Activities Neuromuscular Re-Ed Therapeutic Exercise Therapeutic Activities Neuromuscular Re-Ed Therapeutic Exercise Therapeutic Activities Neuromuscular Re-Ed Therapeutic Exercise Therapeutic Activities Neuromuscular Re-Ed Therapeutic Exercise Therapeutic Activities Neuromuscular Re-Ed Therapeutic Exercise Progress Note Therapeutic Activities Neuromuscular Re-Ed Therapeutic Exercise Therapeutic Activities Neuromuscular Re-Ed Therapeutic Exercise Therapeutic Activities Neuromuscular Re-Ed Therapeutic Exercise Therapeutic Activities Neuromuscular Re-Ed Therapeutic Exercise Therapeutic Activities Neuromuscular Re-Ed Therapeutic Exercise Progress Note Therapeutic Activities Neuromuscular Re-Ed Therapeutic Exercise Therapeutic Activities Neuromuscular Re-Ed Therapeutic Exercise Therapeutic Activities Neuromuscular Re-Ed Therapeutic Exercise Therapeutic Activities Neuromuscular Re-Ed Therapeutic Exercise Therapeutic Activities Neuromuscular Re-Ed Therapeutic Exercise Therapeutic Activities Neuromuscular Re-Ed Therapeutic Exercise Therapeutic Activities Neuromuscular Re-Ed Therapeutic Exercise Therapeutic Activities Neuromuscular Re-Ed Therapeutic Exercise Therapeutic Activities Neuromuscular Re-Ed Therapeutic Exercise Doc neg elder mal no plan PT Evaluation Low Complexity Therapeutic Activities Neuromuscular Re-Ed Advance Directives Directive Yes / No Effective Date File Name No Information Encounters Encounter Description Practice Location Reason(s) For Visit Diagnoses Date Provider Providers Copied on Encounter [facility] [facility], [place], [place], [address], [place] tel:[phone] [place] No Information Garland Cui . Referring Provider: Chi Ghotra, [address] [facility] [address], [place], [address]. tel:[phone] [facility], [place], [place], [address], tel:[phone] [place] No Information Garland Frederick. . Referring Provider: Chi Ghotra Seth [facility] [address], [place], [address]. tel:[phone] [facility] [address] [place], [place] [address], [place], [place], [address], tel:[phone] [place] No Information Garladn Frederick. . Referring Provider: Salvador Cool[address] [place] [address] [address], [place], [place], [facility]. tel:[phone] [address], [place], [place], [address], [place] tel:[phone] [place] No Information Garland Frederick. . Referring Provider: Kenyon Cool [facility] [address], [place], [facility]. tel:[phone] [facility] [address] [place], [place] [address] [address], [place], [place], [address], [place] tel:[phone] [place] No Information Garland Frederick. . Referring Provider: Kenyon Cool [address] [place] [address] [address], [place], [address]. tel:[phone] [facility] [address] [place], [place] [address], [place], [place], [address], [place] tel:[phone] [place] No Information Garland Frederick. . Referring Provider: Kenyon Cool [facility] [address], [place], [address]. tel:[phone] [facility] [address] [facility] [address], [place], [place], [address], [place] tel:[phone] [place] No Information Garland Frederick. . Referring Provider: Kenyon Cool [facility] [address], [place], [address]. tel:[phone] [facility], [place], [place], [address], [place] tel:[phone] [place] No Information Abad Reece. . Referring Provider: Joey Lewis, [address] [place], [address]. tel:[phone] [facility], [address] [facility] [address], [place], [address], [place] tel:[phone] [place] No Information Garland Chaparroyn. . Referring Provider: Joey Lewis, [address] [place], [address]. tel:[phone] [facility], [address] [facility] [address], [place], [place], [address], [place] tel:[phone] [place] No Information Garland Chaparroyn. . Referring Provider: Joey Lewis, [address] [place], [address]. tel:[phone] [facility], [address], [address], [place] tel:[phone] [place] No Information Abad Reece. . Referring Provider: Joey Lewis, [address] [place], [address]. tel:[phone] [facility] [facility], [address], [place] tel:[phone] [place] No Information Garland Chaparroyn. . Referring Provider: Joey Lewis, [address] [place], [address]. tel:[phone] [facility] [facility] [address], [place], [place], [address], [place] tel:[phone] [place] No Information Garland Chaparroyn. . Referring Provider: Alvaro Rodriguez, [address] [address], [place], [address]. tel:[phone] [facility], [address], [place], [place], [address], [place] tel:[phone] [place] No Information Garland Chaparroyn. . Referring Provider: [address], [place], [address]. tel:[phone] [facility] [address], [place], [place], [address], [place] tel:[phone] [place] No Information Esterrtz Shanell. . Referring Provider: [address], [place], [address]. tel:[phone] [facility], [address], [place], [place], [address], tel:[phone] [place] No Information Garland Chaparroyn. . Referring Provider: [address], [place], [address]. tel:[phone] [facility] [address], [place], [place], [address], tel:[phone] [place] No Information Esterrtjones MichelleShanell. . Referring Provider: [address], [place], [address]. tel:[phone] [facility], [address], [place], [place], [address], [place] tel:[phone] [place] No Information Garland Chaparroyn. . Referring Provider: Isabell [address], [place], [address]. tel:[phone] [facility], [address], [place], [place], [address], [place] tel:[phone] [place] No Information Garland Frederick. . Referring Provider: Alvaro Rodriguez [address], [place], [address]. tel:[phone] [facility], [address] [facility] [address], [place], [place], [address], tel:[phone] [place] No Information Garland Frederick. . Referring Provider: Isabell Gonzalez [address], [place], [address]. tel:[phone] [facility], [address], [place], [place], [address], tel:[phone] [place] No Information Garland Frederick. . Referring Provider: Isabell Gonzalez [address], [place], [address]. tel:[phone] [facility], [address], [place], [place], [address], tel:[phone] [place] No Information Garland Frederick. . Referring Provider: Isabell Gonzalez [address], [place], [address]. tel:[phone] [facility] [address] [facility] [address], [place], [place], [address], tel:[phone] [place] No Information Garland Frederick. . Referring Provider: Isabell Gonzalez [address], [place], [address]. tel:[phone] [facility] [facility] [address], [place], [place], [address], tel:[phone] [place] No Information Garland Frederick. . Referring Provider: Alvaro Rodriguez [address], [place], [address]. tel:[phone] [place] [address], [address], [place], [place], [address], [place] tel:[phone] [place] No Information Lurtz Shanell. . Referring Provider: [address], [place], [address]. tel:[phone] [facility], [address], [place], [place], [address], [place] tel:[phone] [place] No Information Garland Frederick. . Referring Provider: Is[address], [place], [address]. tel:[phone] [facility], [address] [facility] [address], [place], [place], [address], tel:[phone] [place] No Information Garland Frederick. . Referring Provider: Is[address]ell [address], [place], [address]. tel:[phone] [facility] [facility], [place], [place], [address], tel:[phone] [place] No Information Garland Frederick. . Referring Provider: Is[address], [place], [address]. tel:[phone] [facility] [facility] [address], [place], [address], [place] tel:[phone] [place] No Information Lurtz Shanell. . Referring Provider: Is[address], [place], [address]. tel:[phone] [facility], [address], [place], [place], [address], tel:[phone] [place] No Information Garland Frederick. . Referring Provider: Alvaro Rodriguez [address], [place], [address]. tel:[phone] [address], [facility] [address], [place], [place], [address], tel:[phone] [place] No Information Garland Frederick. . Referring Provider: Isabell Gonzalez [address], [place], [address]. tel:[phone] [facility], [address], [place], [place], [address], [place] tel:[phone] [place] No Information Garland Frederick. . Referring Provider: Isabell Gonzalez [address], [place], [address]. tel:[phone] [place] [address] [address], [place], [place], [address], tel:[phone] [place] No Information Garland Frederick. . Referring Provider: Isabell Gonzalez [address], [place], [address]. tel:[phone] [place] [address], [address], [place], [place], [address], tel:[phone] [place] No Information Garland Frederick. . Referring Provider: Alvaro Rodriguez [address], [place], [address]. tel:[phone] [place] [address], [address], [place], [place], [address], [place] tel:[phone] [place] No Information Garland Frederick. . Referring Provider: Alvaro Rodriguez [address], [place], [address]. tel:[phone] [place] [address], [address], [place], [place], [address], tel:[phone] [place] No Information Garland Chaparroyn. . Referring Provider: Isabell Gonzalez [address], [place], [address]. tel:[phone] [facility], [address] [facility] [address], [place], [place], [address], tel:[phone] [place] No Information Garland Chaparroyn. . Referring Provider: Isabell Gonzalez [address], [place], [address]. tel:[phone] [facility], [address] [place], [place] [address], [place], [place], [address], tel:[phone] [place] No Information Garland Chaparroyn. . Referring Provider: Isabell Gonzalez [address], [place], [address]. tel:[phone] [facility], [address] [facility] [address], [place], [address], tel:[phone] [place] No Information Abad Reece. . Referring Provider: [address], [place], [address]. tel:[phone] [facility] [address] [facility] [address], [address], tel:[phone] [place] No Information Garland Chaparroyn. . Referring Provider: [address], [place], [address]. tel:[phone] [facility], [address], [place], [place], [address], tel:[phone] [place] No Information Garland Chaparroyn. . Referring Provider: [address], [place], [address]. tel:[phone], [id number], tel:[phone] [place] No Information Garland Frederick. . Referring Provider: Alvaro Rodriguez [address] [facility] [address], [place], [address]. tel:[phone], [id number], tel:[phone] [place] No Information Garland Frederick. . Referring Provider: Alvaro Rodriguez [address] [facility] [address], [place], [address]. tel:[phone], [id number], tel:[phone] [place] No Information Garland Frederick. . Referring Provider: Alvaro Rodriguez [address] [address], [place], [address]. tel:[phone], [id number], tel:[phone] [place] No Information Garland Frederick. . Referring Provider: Alvaro Rodriguez [address] [facility] [address], [place], [address]. tel:[phone] Family History Family Member Type Diagnosis Age At Onset No Information Payers Payer name Insurance type Covered republican ID Authorteresa caldwell(s) [facility] [id number] Social History Type Description Quantity Date Captured Comments Sex Female Smoking Status No Information Chief Complaint And Reason For Visit No Information Reason For Referral Reason For Referral No Information History Of Present Illness Encounter Date Complaint History Of Prese nt Illness No Information Functional Status Date Functional Assessmen t No Information Instructions Date Instruction Additional Infor mation No Information Assessments Type Assessment Date No Information Patient Care Teams Name Effective Dates (start - stop) Status Members No Information
[2024-11-22 17:04] VITALS: BP 152/102; PULSE 89; RESP 16; TEMP 36.1; O2SAT 100
--- NOTE | 2024-11-22 17:32 | ED.GENADULT ---
HPI - General Adult General Chief complaint: Dental/Oral Stated complaint: Dental/Oral History of Present Illness HPI narrative: Rachell Chilel Is a 64-year-old female who presents today with complaints of having left upper dental pain that started a few days ago. She states that the pain got much worse today and when she pressed on it she noticed that it started to bleed. She states the area where the pain is his exactly where she has had 2 root canal done. Denies any fever or chills. she states she tried to call her dentist's office today but they are close, she has planned try to get hold of them again tomorrow. She states that she is supposed to be getting on a plane on Friday and at least wanted to get some antibiotics. Related Data Home Medications ?Medication ?Instructions ?Recorded ?Confirmed ?Last Taken ?Type fluconazole 150 mg tablet 150 mg PO WEEKLY 02/06/24 10/08/24 08/13/24 History hydrocortisone 2.5 % topical cream 1 applic topical BID PRN 02/06/24 10/08/24 Unknown History hemorrhoids nitrofurantoin macrocrystal 50 mg 50 mg PO PRN 02/06/24 10/08/24 08/19/24 History capsule progesterone micronized 100 mg 100 mg PO QPM 02/06/24 10/08/24 08/18/24 History capsule biotin 2,500 mcg capsule 2,500 mcg PO DAILY 07/29/24 10/08/24 08/16/24 History cholecalciferol (vitamin D3) 125 125 mcg PO DAILY 07/29/24 10/08/24 08/16/24 History mcg (5,000 unit) capsule garlic 1,000 mg capsule (garlic 1,000 mg PO DAILY 07/29/24 10/08/24 Unknown History oil) lutein 20 mg capsule 20 mg PO DAILY 07/29/24 10/08/24 08/18/24 History magnesium 250 mg tablet 250 mg PO DAILY 07/29/24 10/08/24 08/16/24 History magnesium hydroxide 400 mg/5 mL 5 ml PO HS 07/29/24 10/08/24 08/18/24 History oral suspension (Milk of Magnesia) omega-3 fatty acids 2,500 mg PO DAILY 07/29/24 10/08/24 08/16/24 History vitamin B complex (Vitamins B 1 cap PO DAILY 07/29/24 10/08/24 08/16/24 History Complex capsule) zinc 50 mg tablet 50 mg PO DAILY 07/29/24 10/08/24 08/16/24 History Allergies Allergy/AdvReac Type Severity Reaction Status Date / Time atenolol AdvReac Hypotension Verified 11/22/24 17:16 Review of Systems Review of Systems: All systems reviewed & are unremarkable except as noted in HPI and below PMFSH Past Medical History Medical History Ascending aortic aneurysm Hypertension Dyslipidemia Hypothyroidism Left knee DJD Ovarian cyst Cyst, sinus nasal Thoracic aortic aneurysm Family history of gynecological problem with orthopedic problem Sleep apnea Arthritis Allergies Surgical History Surgical History H/O sinus surgery History of spinal fusion [place] teeth removed Family History Family History Mother Hypertension Cerebrovascular accident Social History Social History Smoking status: Never smoker Additional smoking assessment comments: DENIES ANY FORM OF TOBACCO USE Alcohol intake: current Drinks per week: 1 Substance use: current Substance use type: marijuana Last use: 08/18/24 Do You Feel Safe in your Home?: Yes Lack of Transportation: No Lack of Food: Never True Current Housing: I Have Housing Concerned About Future Housing: No Difficulty Paying Gas/Electric Bills: No Difficulty Paying for Meds: No Currently Unemployed: No Education: Master's Degree or Higher Difficulty w/ Childcare or Family Care: No Living arrangements: with family Spiritual care concerns: No Exam Narrative: GENERAL: Well-appearing, well-nourished, and in no acute distress. HEAD: Normocephalic, atraumatic. EYES: PERRLA and EOMI. ENT: Nares clear, no rhinorrhea or epistaxis. Mucous membranes moist. Oropharynx without tonsillar hypertrophy exudate or other lesions. NECK: Supple. No adenopathy or masses. CHEST: No respiratory distress. HEART: Regular rate and rhythm Normal peripheral pulses. EXTREMITIES: Normal range of motion. No edema. SKIN: Warm, dry, no rash. NEURO: No focal deficits. Alert and oriented x3. PSYCH: Normal mood and affect. Course Course Level of Care: Express Care Visit Vital Signs Vital signs: Vital Signs Temperature 36.1 C L 11/22/24 17:04 Pulse Rate 89 11/22/24 17:04 Respiratory Rate 16 11/22/24 17:04 Blood Pressure 152/102 H 11/22/24 17:04 Pulse Oximetry 100 11/22/24 17:04 Oxygen Delivery Room Air 11/22/24 17:04 Temperature 36.1 C L 11/22/24 17:04 Pulse Rate 89 11/22/24 17:04 Respiratory Rate 16 11/22/24 17:04 Blood Pressure 152/102 H 11/22/24 17:04 Pulse Oximetry 100 11/22/24 17:04 Oxygen Delivery Room Air 11/22/24 17:04 Medical Decision Making MDM Narrative Medical decision making narrative: Patient with worsening dental pain. No palpable abscess. No systemic signs or symptoms. Antibiotics course provided. Patient was given return precautions and discharged home in stable condition. Pulse oximetry interpretation: not hypoxic. Disposition: Discharge to home in stable condition. Impression: Acute dental pain, likely due to dental caries. Medical Records Medical records reviewed: Yes I reviewed the external patient's medical records. Vital Signs Vital Signs: Vital Signs Temperature 36.1 C L 11/22/24 17:04 Pulse Rate 89 11/22/24 17:04 Respiratory Rate 16 11/22/24 17:04 Blood Pressure 152/102 H 11/22/24 17:04 Pulse Oximetry 100 11/22/24 17:04 Oxygen Delivery Room Air 11/22/24 17:04 Temperature 36.1 C L 11/22/24 17:04 Pulse Rate 89 11/22/24 17:04 Respiratory Rate 16 11/22/24 17:04 Blood Pressure 152/102 H 11/22/24 17:04 Pulse Oximetry 100 11/22/24 17:04 Oxygen Delivery Room Air 11/22/24 17:04 Vitals reviewed by me Discharge Plan Discharge Clinical Impression: Dental infection, Toothache Patient Disposition: Home Condition: Stable Instructions: Antibiotic Form Additional Instructions: Start taking the Antibiotics as ordered twice daily for 10 days Call your dentist tomorrow to see if they can get you in for another evaluation You may try orajel, salt water gargle rinse and/ or Motrin and Tylenol for the pain If you develop any worsening sympotms or have any other concerns you may return or seek emergency care. Patient Language: Indonesian Prescriptions: New amoxicillin-pot clavulanate 875-125 mg tablet 1 tablet PO Q12H Qty: 20 0RF No Action progesterone micronized 100 mg capsule 100 mg PO QPM nitrofurantoin macrocrystal 50 mg capsule 50 mg PO PRN Patient Comments: PRN AFTER INTERCOUSE TO PREVENT UTI'S Rx Instructions: must administer with a meal/food fluconazole 150 mg tablet 150 mg PO WEEKLY Patient Comments: TO PREVENT YEAST INFECTIONS TAKES ON FRIDAY hydrocortisone 2.5 % cream 1 applic topical BID PRN (Reason: hemorrhoids) magnesium hydroxide [Milk of Magnesia] 400 mg/5 mL suspension 5 ml PO HS omega-3 fatty acids Capsule 2,500 mg PO DAILY lutein 20 mg capsule 20 mg PO DAILY Rx Instructions: give with meal/snack cholecalciferol (vitamin D3) 125 mcg (5,000 unit) capsule 125 mcg PO DAILY biotin 2,500 mcg capsule 2,500 mcg PO DAILY garlic [garlic oil] 1,000 mg capsule 1,000 mg PO DAILY zinc 50 mg tablet 50 mg PO DAILY magnesium 250 mg tablet 250 mg PO DAILY vitamin B complex [Vitamins B Complex] Capsule 1 cap PO DAILY aspirin 81 mg tablet,delayed release (DR/EC) 81 mg PO BID 14 Days Qty: 28 0RF oxycodone-acetaminophen 5-325 mg tablet 1 - 2 tablet PO Q4-6H PRN (Reason: pain) 7 Days Qty: 30 0RF ondansetron 4 mg tablet,disintegrating 4 mg PO Q8H Qty: 30 0RF diclofenac sodium 50 mg tablet,delayed release (DR/EC) 50 mg PO BID Qty: 180 1RF gabapentin 600 mg tablet 600 mg PO QHS Qty: 90 1RF lorazepam 1 mg tablet 1 mg PO QHS PRN (Reason: sleep) Qty: 30 0RF estradiol 0.01 % (0.1 mg/gram) cream 1 g vaginal 3XW Qty: 42.5 1RF amoxicillin 500 mg tablet 500 mg PO ONCE Qty: 4 0RF Rx Instructions: TAKE 4 TABLETS ONE HOUR PRIOR TO DENTAL PROCEDURE. Follow-up/Referrals: Joey Weston MD [Primary Care Provider] - 3 Days Stand Alone Forms: Work/School Release IP Time of Disposition: 17:38
== END 2024-11-22 17:48 | disposition home or self-care (01) ==
PROVIDERS: Emergency Provider Nurse Practitioner Family; PCP Family Medicine
DX: K04.7 Periapical abscess without sinus (principal); I10 Essential (primary) hypertension; E78.5 Hyperlipidemia, unspecified; E03.9 Hypothyroidism, unspecified; M17.12 Unilateral primary osteoarthritis, left knee; M19.90 Unspecified osteoarthritis, unspecified site
CPT/HCPCS: 99213; G0463